=== PATIENT | male | born 1965 | race Caucasian/White ===

== ENCOUNTER → 2018-09-07 14:53 | Outpatient (CLI) | payer OTHER, SELFPAY ==
--- NOTE | 2018-09-07 | DI.RAD.S_ITS ---
PROCEDURE: XR FOOT LT MIN 3V INDICATIONS: PAIN IN LEFT FOOT TECHNIQUE: 3 views of the foot were acquired. COMPARISON: None. FINDINGS: Bones: No fractures or dislocations. No suspicious bony lesions. Mild first MTP degeneration. 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 Prominent plantar and posterior calcaneal spurring. Soft tissues: No tibiotalar joint effusion. Achilles tendon appears normal. IMPRESSION: Prominent plantar and posterior calcaneal spurring. Diffuse forefoot joint degeneration as above Dictated by: Omar Ashley M.D. on 09/07/2018 at 17:06 Approved by: Omar Ashley M.D. on 09/07/2018 at 17:10
== END ==
PROVIDERS: PCP Internal Medicine; Visit Provider Internal Medicine
DX: M79.672 Pain in left foot (principal); M10.9 Gout, unspecified; M77.32 Calcaneal spur, left foot; M19.072 Primary osteoarthritis, left ankle and foot
CPT/HCPCS: 73630

== ENCOUNTER 2020-05-08 17:51 | Observation (INO) | payer OTHER, SELFPAY ==
[2020-05-08] VITALS (11 sets, daily range): BP systolic 149–171; BP diastolic 93–102; PULSE 74–102; RESP 16–18; TEMP 36.4–36.7; O2SAT 94–98; BMI 36.3
--- NOTE | 2020-05-08 19:03 | ED.GENADULT ---
HPI - General Adult General Chief complaint: Diabetic Problem Stated complaint: HIGH BLOOD SUGAR Time Seen by Provider: 05/08/20 18:54 Source: patient and family Mode of arrival: Ambulatory History of Present Illness HPI narrative: Patient here with . Sent here from urgent care. Two weeks complaints of nausea polyuria polydipsia. Feeling tired and weak. Accu-Chek greater 500 at urgent care. Tested positive strep at Urgent Care. Denies chest pain abdominal pain. No prior history of diabetes diagnosis. No fever chills cough cold or congestion. Primary care is in [place]. Dr. Beckman. Unaware of patient's symptoms Related Data Home Medications Medication Instructions Recorded Confirmed amlodipine [Norvasc] 5 mg PO BEDTIME #0 03/01/17 05/08/20 esomeprazole magnesium [Nexium] 40 mg PO BEDTIME #0 03/01/17 05/08/20 levothyroxine [Synthroid] 100 mcg PO BEDTIME #0 03/01/17 05/08/20 triamterene-hydrochlorothiazid 1 tab PO BEDTIME #0 03/01/17 05/08/20 spironolactone 25 mg tablet 25 mg PO BEDTIME 07/10/18 05/08/20 Previous Rx's Medication Instructions Recorded amoxicillin 875 mg-potassium 1 tab PO BID #20 tab 07/10/18 clavulanate 125 mg tablet Allergies Allergy/AdvReac Type Severity Reaction Status Date / Time No Known Allergies Allergy Uncoded 05/08/20 18:11 Review of Systems Review of Systems Narrative: GENERAL: Denies chills, complains fatigue, malaise, denies fever, sweats. HEENT: Denies sinus pain, ear pain, sore throat, difficulty swallowing, dizziness. RESPIRATORY: Denies dyspnea, cough, wheezing, hemoptysis, sputum. CARDIOVASCULAR: Denies chest pain, palpitations, orthopnea, edema, GASTROINTESTINAL: Complains of nausea, denies vomiting, abdominal pain, diarrhea, constipation, melena. : Denies dysuria, complains of frequency, denies incontinence, hematuria, urinary retention. MUSCULOSKELETAL: denies weakness, joint pain, or bony pain SKIN: Denies rash, skin lesions NEUROLOGIC: Denies weakness, headache, numbness, change in speech, confusion, seizures, incoordination. PSYCHIATRIC: No concerning psychosocial issues. ROS Unobtainable: All systems reviewed & are unremarkable except as noted in HPI and below Patient History Medical History (Updated 05/08/20 @ 23:24 by LUIS ANGEL Fonseca) Adopted person (Acute) Basal cell carcinoma (Acute) Essential hypertension (Acute) Surgical History (Updated 05/08/20 @ 23:27 by LUIS ANGEL Fonseca) S/P dissection of cervical lymph nodes (Acute) Family History (Updated 05/09/20 @ 00:05 by LUIS ANGEL Fonseca) Other Family history unknown Social History household members: spouse Smoking Status: Never smoker alcohol intake: never Smoking Status: Never smoker Substance Use Type: does not use Exam Narrative Exam Narrative: GENERAL: patient appears stated age. Well-nourished, well-developed patient, in no distress, not toxic HEAD: Atraumatic. Normocephalic. EYES: Pupils equal round and reactive. Extraocular motions intact. No scleral icterus. No injection or drainage. ENT: Nose without bleeding, purulent drainage. Throat without erythema, tonsillar hypertrophy or exudate. Airway patent. Slightly dry mucous membranes NECK: Trachea midline. Non tender CARDIOVASCULAR: Regular rate and rhythm without murmurs, gallops, or rubs. RESPIRATORY: Clear to auscultation. Breath sounds equal bilaterally. No wheezes, rales, or rhonchi. GASTROINTESTINAL: Abdomen soft, non-tender, nondistended. EXTREMITIES: No edema or joint tenderness. BACK: Nontender without deformity or crepitance. No flank tenderness. NEURO: AOx4. SKIN: No rash or erythema of visible areas PSYCH: Not anxious, is cooperative Initial Vital Signs Initial Vital Signs: Vital Signs Temperature 98.1 F 05/08/20 18:05 Pulse Rate 102 H 05/08/20 18:05 Respiratory Rate 16 05/08/20 18:05 Blood Pressure 155/102 H 05/08/20 18:05 Pulse Oximetry 97 05/08/20 18:05 Course Orders Ordered: Acetaminophen (Tylenol) 650 mg PO Q6HR PRN PRN Reason: Fever/Mild Pain (1-3) Amlodipine Besylate (Norvasc) 2.5 mg PO DAILY [facility] Amoxicillin/Clavulanate Potassium (Augmentin 875-125 Mg) 1 tab PO BID SURJIT Last Admin: 05/09/20 03:00 Dose: 1 tab Documented by: AKILAH Dextrose (D50w) 25 gm IV PRN PRN PRN Reason: Hypoglycemia Dextrose (D50w) 25 gm IV PRN PRN PRN Reason: Hypoglycemia Enoxaparin Sodium (Lovenox) 40 mg SUBCUT DAILY SURJIT Sodium Chloride (Normal Saline 0.45%) 1,000 mls @ 100 mls/hr IV CONT SURJIT Last Admin: 05/09/20 02:55 Dose: 100 mls/hr Documented by: AKILAH Insulin Aspart (Novolog Flexpen) 0 unit SUBCUT ACHS SURJIT; Protocol Insulin Aspart (Novolog Flexpen) 0 unit SUBCUT ACHS SURJIT; Protocol Insulin Glargine (Lantus Solostar (Pen)) 5 unit SUBCUT 2100 [facility] Last Admin: 05/09/20 03:03 Dose: Not Given Documented by: AKILAH Levothyroxine Sodium (Synthroid) 100 mcg PO 0600 SURJIT Naloxone HCl (Narcan) 0.2 mg IV Q2MIN PRN PRN Reason: Opiate Reversal Ondansetron HCl (Zofran) 4 mg IV Q6HR PRN PRN Reason: Nausea And Vomiting Discontinued Medications Amlodipine Besylate (Norvasc) 2.5 mg PO NOW ONE Stop: 05/08/20 23:12 Last Admin: 05/09/20 03:16 Dose: Not Given Documented by: AKILAH Amlodipine Besylate (Norvasc) 2.5 mg PO NOW ONE Stop: 05/09/20 03:18 Last Admin: 05/09/20 03:46 Dose: 2.5 mg Documented by: AKILAH Sodium Chloride (Normal Saline 0.9%) 1,000 mls @ 1,000 mls/hr IV BOLUS ONE Stop: 05/08/20 20:05 Last Infusion: 05/08/20 21:25 Dose: 0 mls/hr Documented by: Admin: 05/08/20 19:59 Dose: 1,000 mls/hr Documented by: STACY Insulin Glargine (Lantus Solostar (Pen)) 5 unit SUBCUT BEDTIME SURJIT Last Admin: 05/09/20 03:01 Dose: 5 unit Documented by: AKILAH Cosigned by: BESSIE Insulin Human Regular (Humulin R) 10 unit SUBCUT NOW ONE Stop: 05/08/20 20:23 Last Admin: 05/08/20 20:31 Dose: 10 unit Documented by: NANY Cosigned by: STACY Reevaluation(s) Reevaluation #1: s/w feliciano macias, hospitalist, will see pt in er, give insulin Time: 20:23 Vital Signs Vital signs: Vital Signs - 8 hr 05/08/20 18:05 05/08/20 19:37 05/08/20 19:38 Temperature 98.1 F Pulse Rate 102 H 84 84 Respiratory Rate 16 Blood Pressure 155/102 H 157/100 H Pulse Oximetry 97 97 96 05/08/20 20:00 05/08/20 20:30 Temperature Pulse Rate 87 88 Respiratory Rate Blood Pressure 156/93 H Pulse Oximetry 94 98 Medical Decision Making Differential Diagnosis Differential Diagnosis: New onset diabetes/strep throat Lab Data Lab results reviewed: Yes I reviewed the patient's lab results. Result diagrams: 05/08/20 19:30 05/08/20 19:30 Labs: Lab Results 05/08/20 05/08/20 05/08/20 Range/Units 19:00 19:30 19:30 WBC 11.2 H (4.5-11.0) X10^3/uL RBC 6.20 H (4.5-5.9) X10^6/uL Hgb 17.6 H (13.5-17.5) g/dL Hct 51.1 (41-53) % MCV 82.5 (80-100) fL MCH 28.3 (26-34) PG MCHC 34.3 (30-36) % RDW 13.3 (11.6-14.8) % Plt Count 242 (150-400) X10^3/uL Neut % (Auto) 66.4 (50-75) % Lymph % (Auto) 22.4 L (25-40) % Cloud % (Auto) 9.0 (3-14) % Eos % (Auto) 1.4 L (2-4) % Baso % (Auto) 0.8 (0-2) % Neut # (Auto) 7400 H (2894-2368) /uL Lymph # (Auto) 2500 (9924-2245) /uL Cloud # (Auto) 1000 H (0-900) /uL Eos # (Auto) 200 (0-450) /uL Baso # (Auto) 100 (0-100) /uL Sodium 131 L (137-145) mmol/L Potassium 4.2 (3.4-5.1) mmol/L Chloride 88 L (98-107) mmol/L Carbon Dioxide 29 (22-32) mmol/L BUN 37 H (9-20) mg/dL Creatinine 1.70 H (0.66-1.25) mg/dL Estimated GFR 42.1 L (>60) mL/min BUN/Creatinine Ratio 21.8 (6-22) Glucose 533 H* (70-100) mg/dL Hemoglobin A1c (4.0-6.0) % Calcium 10.2 (8.4-10.2) mg/dL Total Bilirubin 1.0 (0.2-1.3) mg/dL AST 50 (17-59) IU/L ALT 65 H (<50) IU/L Alkaline Phosphatase 165 H (38-126) U/L Total Protein 9.0 H (6.3-8.2) g/dL Albumin 4.5 (3.5-5.0) g/dL Globulin 4.5 H (1.7-4.1) g/dL Albumin/Globulin Ratio 1.0 (1.0-2.8) Lipase 420 H (23-300) U/L Ketones 0.19 (<0.27) mmol/L COVID-19 PCR Negative (Negative) 05/08/20 Range/Units 19:30 WBC (4.5-11.0) X10^3/uL RBC (4.5-5.9) X10^6/uL Hgb (13.5-17.5) g/dL Hct (41-53) % MCV (80-100) fL MCH (26-34) PG MCHC (30-36) % RDW (11.6-14.8) % Plt Count (150-400) X10^3/uL Neut % (Auto) (50-75) % Lymph % (Auto) (25-40) % Cloud % (Auto) (3-14) % Eos % (Auto) (2-4) % Baso % (Auto) (0-2) % Neut # (Auto) (3483-6513) /uL Lymph # (Auto) (1227-6247) /uL Cloud # (Auto) (0-900) /uL Eos # (Auto) (0-450) /uL Baso # (Auto) (0-100) /uL Sodium (137-145) mmol/L Potassium (3.4-5.1) mmol/L Chloride (98-107) mmol/L Carbon Dioxide (22-32) mmol/L BUN (9-20) mg/dL Creatinine (0.66-1.25) mg/dL Estimated GFR (>60) mL/min BUN/Creatinine Ratio (6-22) Glucose (70-100) mg/dL Hemoglobin A1c 12.6 H (4.0-6.0) % Calcium (8.4-10.2) mg/dL Total Bilirubin (0.2-1.3) mg/dL AST (17-59) IU/L ALT (<50) IU/L Alkaline Phosphatase (38-126) U/L Total Protein (6.3-8.2) g/dL Albumin (3.5-5.0) g/dL Globulin (1.7-4.1) g/dL Albumin/Globulin Ratio (1.0-2.8) Lipase (23-300) U/L Ketones (<0.27) mmol/L COVID-19 PCR (Negative) Point of Care Testing Glucose POC 533 Point of care testing: Point of Care Testing Glucose POC 533 MDM Narrative Medical decision making narrative: Appropriate for admission. No comparison for renal function. New onset diabetes. IV fluids given. Insulin given requested by hospitalist. Discharge Plan Departure Patient Disposition: Admitted as Observation Clinical Impression: Diabetes mellitus Qualifiers: Diabetes mellitus type: other specified (including BORIS) Diabetes mellitus group home insulin use: unspecified termite exterminator helper insulin use status Diabetes mellitus complication status: with other specified complication Qualified Code(s): E13.69 - Other specified diabetes mellitus with other specified complication Discharge Date/Time: 05/08/20 21:56 Admit Date/Time: 05/08/20 20:44 Admit Provider: Ni Macias
[2020-05-08 19:21] LABS: COVID19 -Nasal RAPID Negative (Negative)
[2020-05-08 19:36] LABS: Add Manual Diff / Slide Review NO; Basophils Absolute Auto 100 /uL (0-100); Basophils Percent Auto 0.8 % (0-2); Eosinophils Absolute Auto 200 /uL (0-450); Eosinophils Percent Auto 1.4 % (2-4); Hematocrit 51.1 % (41-53); Hemoglobin 17.6 g/dL (13.5-17.5); Lymphocytes Absolute Auto 2500 /uL (1100-4500); Lymphocytes Percent Auto 22.4 % (25-40); Mean Corpuscular HGB Conc 34.3 % (30-36); Mean Corpuscular Hemoglobin 28.3 PG (26-34); Mean Corpuscular Volume 82.5 fL (80-100); Monocytes Absolute Auto 1000 /uL (0-900); Neutrophils Absolute Auto 7400 /uL (1500-7000); Neutrophils Percent Auto 66.4 % (50-75); Platelet Count 242 X10^3/uL (150-400); Red Cell Distribution Width 13.3 % (11.6-14.8); White Blood Cell Count 11.2 X10^3/uL (4.5-11.0)
[2020-05-08 19:52] LABS: Alanine Aminotransferase 65 IU/L (<50); Albumin 4.5 g/dL (3.5-5.0); Alkaline Phosphatase 165 U/L (38-126); Aspartate Aminotransferase 50 IU/L (17-59); BUN Creatinine Ratio 21.8 (6-22); Blood Urea Nitrogen 37 mg/dL (9-20); Calcium 10.2 mg/dL (8.4-10.2); Carbon Dioxide 29 mmol/L (22-32); Chloride 88 mmol/L (98-107); Estimated Glomerular Filt Rate 42.1 mL/min (>60); Globulin 4.5 g/dL (1.7-4.1); Lipase 420 U/L (23-300); Potassium 4.2 mmol/L (3.4-5.1); Sodium 131 mmol/L (137-145)
[2020-05-08 19:54] LABS: HEMOLYSIS 62 (0-50)
[2020-05-08 19:55] LABS: Glucose 533 mg/dL (70-100); Ketones (Beta-Hydroxybutyrate) 0.19 mmol/L (<0.27)
[2020-05-08] MEDS: SODIUM CHLORIDE 0.9% 1,000 ML 1000 ML IV (19:59)
[2020-05-08] MEDS: INSULIN REGULAR 100 UNIT/ML 3 ML VIAL 10 UNIT SUBCUT (20:31)
[2020-05-08 20:42] LABS: Hemoglobin A1C% w Est Avg Glu 12.6 % (4.0-6.0)
--- NOTE | 2020-05-08 23:13 | P.HP_ITS ---
History of Present Illness History of Present Illness Date Patient Seen: 05/08/20 Time Patient Seen: 21:30 Chief complaint: HIGH BLOOD SUGAR Narrative: Alondra Mohan is a 54 y.o. male who was sent over from [facility] in [place] after being assessed for an upper respiratory infection and diagnosed with strep throat. He states he has been nauseous for 2 weeks, has had a dry mouth and is thirsty and urinating all the time. He felt initially that this was timed coincided with some changes in his blood pressure medications which included amlodipine and triamterine. He was taking both together due to the swelling caused by the amlodipine. He states he had similar symptoms in February, had his blood pressure medications adjusted and stated at that time his eyesight improved. He is adopted and does not know his family history. He states he has had nasal congestion for a number of days, visual changes as mentioned above, cough and sore throat, denies chest pain, shortness of breath, abdominal pain, he has had polyuria for 2 weeks, denies musculoskeletal pain however he does have bilateral neuropathy of both feet after having under gone chemotherapy in the remote past. The patient has had basal cell carcinoma with lesions removed 2 years ago which included dissection of lymph nodes in his right neck and corresponding chemotherapy. He states history of hypertension that eventually becomes resistant to medications he has been on the past which is also included lisinopril. He states he recently had a lipid panel drawn and no mention was made at that time of his blood sugars. In the emergency department they gave him 10 units of regular insulin at my request, his admitting temperature 97.5, blood pressure 171/97, heart rate 74, r espiratory rate 18, oxygen saturation 98% on room air, he weighs 124.7 kg with a BMI of 36. WBC is 11.2, RBC 6.2, hemoglobin 17.6, hematocrit 51.1, platelet count 242, sodium 131, potassium 4.2, chloride 88, bicarb 29, BUN 37, creatinine 1.7, with a GFR of 42.1, glucose 533 and hemoglobin A1c of 12.6, calcium 10 point 2, total bilirubin 1.0, AST 50, ALT 65, alk-phos 165, total protein 9.0, ketones are normal at 0.19, COVID-19 is negative. Patient History Medical History (Updated 05/08/20 @ 23:24 by LUIS ANGEL Fonseca) Adopted person (Acute) Basal cell carcinoma (Acute) Essential hypertension (Acute) Surgical History (Updated 05/08/20 @ 23:27 by LUIS ANGEL Fonseca) S/P dissection of cervical lymph nodes (Acute) Family & Social History Family History (Updated 05/09/20 @ 00:05 by LUIS ANGEL Fonseca) Other Family history unknown Social History: household members spouse Prior Living Arrangements House Safety & Behavioral: Feels Safe in Current Yes Environment Been Physically Hurt or No Threatened By a Person Suicidal Ideation Description None Suicide Plan Description No Plan Tobacco & Substance use: Smoking Status Never smoker alcohol intake never Substance Use Type does not use Meds Home Medications and Allergies Home Medications Medication Instructions Recorded Confirmed Type amlodipine [Norvasc] 5 mg PO BEDTIME #0 03/01/17 05/08/20 History esomeprazole magnesium [Nexium] 40 mg PO BEDTIME #0 03/01/17 05/08/20 History levothyroxine [Synthroid] 100 mcg PO BEDTIME #0 03/01/17 05/08/20 History triamterene-hydrochlorothiazid 1 tab PO BEDTIME #0 03/01/17 05/08/20 History amoxicillin 875 mg-potassium 1 tab PO BID #20 tab 07/10/18 Rx clavulanate 125 mg tablet spironolactone 25 mg tablet 25 mg PO BEDTIME 07/10/18 05/08/20 History Allergies Allergy/AdvReac Type Severity Reaction Status Date / Time No Known Allergies Allergy Uncoded 05/08/20 18:11 Review of Systems Review of Systems ROS: Yes All systems reviewed with the patient and are negative except as otherwise documented Exam Vital Signs (past 8 hours): - 05/08/20 18:05 05/08/20 19:37 05/08/20 19:38 Temperature 98.1 F Pulse Rate 102 H 84 84 Respiratory Rate 16 Blood Pressure 155/102 H 157/100 H Pulse Oximetry 97 97 96 05/08/20 20:00 05/08/20 20:30 05/08/20 21:00 Temperature Pulse Rate 87 88 81 Respiratory Rate Blood Pressure 156/93 H Pulse Oximetry 94 98 97 05/08/20 21:03 05/08/20 21:30 05/08/20 21:31 Temperature Pulse Rate 81 74 74 Respiratory Rate Blood Pressure 154/95 H 149/100 H Pulse Oximetry 97 97 97 05/08/20 21:56 Temperature 97.5 F L Pulse Rate 74 Respiratory Rate 18 Blood Pressure 171/97 H Pulse Oximetry 98 Oxygen Delivery Method Room Air Narrative Exam Narrative: Gen: Alert, oriented, overweight 54 y.o. male, HEENT: normocephalic, atraumatic, conjunctiva clear, sclera non-icteric, oral mucosa pink and moist Neck: supple, full ROM, no JVD, trachea is midline Resp: Lungs CTA, non-labored breathing CV: RRR, no murmur or rubs Abd: soft, non-tender, normoactive BTs Skin: esteban complected, no lesions or rashes, dry and intact Neuro: Alert and oriented X 4 w/no focal deficits. Speech clear and coherent. Extremities: moves all 4 extremities, is ambulatory, negative Anita?s sign Psyche: normal mood and affect. Objective Labs Result Diagrams: 05/08/20 19:30 05/08/20 19:30 Labs: Laboratory Results - last 24 hr 05/08/20 05/08/20 05/08/20 19:00 19:30 19:30 WBC 11.2 H RBC 6.20 H Hgb 17.6 H Hct 51.1 MCV 82.5 MCH 28.3 MCHC 34.3 RDW 13.3 Plt Count 242 Neut % (Auto) 66.4 Lymph % (Auto) 22.4 L Gillespie % (Auto) 9.0 Eos % (Auto) 1.4 L Baso % (Auto) 0.8 Neut # (Auto) 7400 H Lymph # (Auto) 2500 Gillespie # (Auto) 1000 H Eos # (Auto) 200 Baso # (Auto) 100 Sodium 131 L Potassium 4.2 Chloride 88 L Carbon Dioxide 29 BUN 37 H Creatinine 1.70 H Estimated GFR 42.1 L BUN/Creatinine Ratio 21.8 Glucose 533 H* Hemoglobin A1c Calcium 10.2 Total Bilirubin 1.0 AST 50 ALT 65 H Alkaline Phosphatase 165 H Total Protein 9.0 H Albumin 4.5 Globulin 4.5 H Albumin/Globulin Ratio 1.0 Lipase 420 H Ketones 0.19 COVID-19 PCR Negative 05/08/20 19:30 WBC RBC Hgb Hct MCV MCH MCHC RDW Plt Count Neut % (Auto) Lymph % (Auto) Gillespie % (Auto) Eos % (Auto) Baso % (Auto) Neut # (Auto) Lymph # (Auto) Gillespie # (Auto) Eos # (Auto) Baso # (Auto) Sodium Potassium Chloride Carbon Dioxide BUN Creatinine Estimated GFR BUN/Creatinine Ratio Glucose Hemoglobin A1c 12.6 H Calcium Total Bilirubin AST ALT Alkaline Phosphatase Total Protein Albumin Globulin Albumin/Globulin Ratio Lipase Ketones COVID-19 PCR Assessment & Plan Assessment & Plan narrative: Alondra Mohan will be observed overnight to stabilize his blood sugars. New onset Diabetes type 2 with an A1c of 12.7, present on admission -He is initiated on basal insulin glargine 5 units with medium dose correctional scale -Glucose achs -Diabetic teaching Essential hypertension, poorly controlled and present on admission -Patient reportedly was on lisinopril but discontinued due to developing resistance -Consider initiation of an ARB/ARNI on discharge when renal function has s tabilized -Holding diuretics Risk stratification -Lipid panel in the am Hypothyroidism, chronic -Continue home dose of levothyroxine 100 mcg daily Strep throat infection -Confirmed by [facility] -Continue augmentin 875 mg po bid VTE prophylaxis: Wells risk score: 2.5, intermediate Enoxaparin 40 mg subQ daily Consults: none Patient is observation status as his stay is not likely to exceed 2 midnights. FEN: NS at 100 ml/hour, carb control diet, BMP and magnesium in the am. Dispo: discharge to home w/close PCP follow-up, clinic is open Monday. Code Status: Full code as discussed with patient COVID-19 COVID-19 status: Negative Result date/Date tested (Pos, Neg/Pending): 05/08/20 Scores Wells' Criteria for PE Clinical signs and symptoms of DVT: No PE is #1 Dx or equally likely: No Heart rate > 100: No Immobilization at least 3 days or surg in previous 4 weeks: No History of PE or DVT: No Hemoptysis: No Malignancy w/Treatment within 6 months or palliative: No Wells' PE Score total: 0 Quality VTE Deep Vein Thrombosis/Pulmonary Embolism Present on Admission: No
[2020-05-09] VITALS (9 sets, daily range): BP systolic 131–143; BP diastolic 58–90; PULSE 64–70; RESP 16–19; TEMP 36.4–36.6; O2SAT 95–98
[2020-05-09] MEDS: SODIUM CHLORIDE 0.45% 1,000 ML 100 ML IV (02:55)
[2020-05-09] MEDS: AMOXICILLIN/CLAV 875/125 MG 1 TAB PO ×3 (03:00→20:36)
[2020-05-09] MEDS: INSULIN GLARGINE 100 UNIT/ML 3ML PEN SUBCUT (03:01)
[2020-05-09] MEDS: AMLODIPINE 2.5 MG TABLET PO ×2 (03:46→08:26)
--- NOTE | 2020-05-09 04:32 | PC.NURSE ---
Pt resting comfortably w/no c/o of throat pain, although he does show erythema of his throat. Early in shift, Lantus, Amoxicillin and amlodipine were missed on OCT and given late. Please see MAR. Pt rested comfortably most of shift.
[2020-05-09] MEDS: LEVOTHYROXINE 75 MCG TABLET 100 MCG PO (05:41)
[2020-05-09 06:29] LABS: Add Manual Diff / Slide Review NO; Basophils Absolute Auto 100 /uL (0-100); Basophils Percent Auto 1.3 % (0-2); Eosinophils Absolute Auto 200 /uL (0-450); Eosinophils Percent Auto 2.6 % (2-4); Hematocrit 45.4 % (41-53); Hemoglobin 15.7 g/dL (13.5-17.5); Lymphocytes Absolute Auto 2600 /uL (1100-4500); Lymphocytes Percent Auto 27.3 % (25-40); Mean Corpuscular HGB Conc 34.6 % (30-36); Mean Corpuscular Hemoglobin 28.5 PG (26-34); Mean Corpuscular Volume 82.3 fL (80-100); Monocytes Absolute Auto 900 /uL (0-900); Monocytes Percent Auto 9.2 % (3-14); Neutrophils Absolute Auto 5700 /uL (1500-7000); Neutrophils Percent Auto 59.6 % (50-75); Platelet Count 209 X10^3/uL (150-400); Red Blood Cell Count 5.51 X10^6/uL (4.5-5.9); Red Cell Distribution Width 13.2 % (11.6-14.8); White Blood Cell Count 9.6 X10^3/uL (4.5-11.0)
[2020-05-09 06:44] LABS: Alanine Aminotransferase 49 IU/L (<50); Albumin 3.7 g/dL (3.5-5.0); Albumin Globulin Ratio 1.1 (1.0-2.8); Alkaline Phosphatase 119 U/L (38-126); Aspartate Aminotransferase 41 IU/L (17-59); BUN Creatinine Ratio 21.9 (6-22); Bilirubin Total 0.6 mg/dL (0.2-1.3); Blood Urea Nitrogen 33 mg/dL (9-20); Calcium 9.3 mg/dL (8.4-10.2); Carbon Dioxide 31 mmol/L (22-32); Chloride 93 mmol/L (98-107); Cholesterol 132 mg/dL (140-199); Estimated Glomerular Filt Rate 48.2 mL/min (>60); Globulin 3.5 g/dL (1.7-4.1); Glucose 372 mg/dL (70-100); HDL Cholesterol 22 mg/dL (40-60); HEMOLYSIS < 15 (0-50); Magnesium 2.2 mg/dL (1.6-2.3); Potassium 3.1 mmol/L (3.4-5.1); Sodium 132 mmol/L (137-145); Total Protein 7.2 g/dL (6.3-8.2); Triglycerides 499 mg/dL (35-150)
[2020-05-09 07:14] LABS: Thyroid Stimulating Hormone 2.68 uIU/mL (0.47-4.68)
[2020-05-09] MEDS: SODIUM CHLORIDE 0.9% 1,000 ML 100 ML IV ×2 (08:15→19:24)
[2020-05-09] MEDS: INSULIN ASPART 100 UNIT/ML INSULN PEN SUBCUT ×4 (08:19→20:37)
[2020-05-09] MEDS: INSULIN GLARGINE 100 UNIT/ML 3ML PEN 10 UNIT SUBCUT (08:20)
[2020-05-09] MEDS: ENOXAPARIN 40 MG/0.4 ML SYRINGE SUBCUT (08:21)
[2020-05-09] MEDS: POTASSIUM CHLORIDE 20 MEQ TAB 40 MEQ PO ×2 (08:25→19:23)
[2020-05-09 12:07] LABS: Bacteria Urine None Seen; RBC Urine None Seen (0-5/HPF); WBC Urine None Seen (0-5/HPF)
[2020-05-09 12:15] LABS: Culture Indicated Urine Cult Not Indicated; Urine Comments Microscopic Normal
--- NOTE | 2020-05-09 14:17 | CM.DANOTE ---
Discharge Planning/Care Management DCP: assessment: case received and met with pt and his Kiera during Team Bedside Rounds. Introduced self and role. Pt is a 54 year old male who admitted to care of hospitalist team last night after being sent over from the [facility]. PCP: Arthur Beckman Pt confirms he lives in [place] and his mailing address is at a [employer] company on [address]. Pt with new diagnosis of URI/strep throat and put on antibiotics by the Urgent Care team then referred to for high blood sugar. Dr. Beauchamp explained to all that pt now has a new diagnosis of diabetes. She is putting him on insulin as well as oral antibiotics, ordering research environmental engineer consult and expecting that he will need to remain in the hospital until at least tomorrow. P: follow as POC unfolds to assist with any d/c issues/options that may arise. CM Discharge Assessment Start: 05/09/20 14:15 Freq: Status: Active Protocol: Document 05/09/20 14:17 ITV (Rec: 05/09/20 14:17 ITV [id number]) Discharge Planning Assessment Advance Directives? No History Provided By Patient,Family Member,Medical Record Prior Living Arrangements House Household Members spouse Independent with ADL's Yes Is patient alert and oriented? Yes Whiteboard Updated in Patient Room with Yes name and ext. # of Sheep Rancher
--- NOTE | 2020-05-09 15:28 | PC.NURSE ---
Day SHift- Pt A&OX4, indep in room with steady gait. Denies chest pain, pressure, nausea, shortness of breath, light-headedness or dizziness. States voiding without issue. Tolerating diet. Insulin and blood glucose level checks explained to pt. Awaiting Agricultural Equipment Test Engineer consult. Likely be tomorrow Monday. IVF infusing well to PIV, changed this AM per Dr's order. Pt's Kiera at bedside visiting. Evening RN aware pt would like his Nexium reordered from home with Dr. Beauchamp rounds on pt. No other voiced concerns. Pt states feeling much better than yesterday.
[2020-05-09 15:48] LABS: Lipase 314 U/L (23-300)
--- NOTE | 2020-05-09 16:41 | PM.PN.1 ---
Subjective Subjective Date Patient Seen: 05/09/20 Interval history: Alondra Mohan is a 54-year-old male with a past medical history signifcant for hypertension who presented to ED at direction of urgent care for hyperglycemia, polyuria, polydipsia, and nausea x 2 weeks. The patient is resting in bed comfortably. Heno longer feels nauseated. He endorses polyuria and polydipsia for several weeks. Discussed in detail diabetes including the diagnosis, associated complications, and management with medications, insulin, and lifestyle changes including diet and exercise. He denies headache, vision changes, cough, shortness of breath, chest pain, abdominal pain, nausea, vomiting, fever, chills, dysuria, diarrhea, constipation, or parestheisias. He is voiding and eliminating without difficulty. He is up ambulating without assistance. Exam Vital Signs (past 8 hours): - 05/09/20 15:00 05/09/20 15:56 Temperature 97.8 F Pulse Rate 70 Respiratory Rate 17 Blood Pressure 143/79 H Pulse Oximetry 98 98 Oxygen Delivery Method Room Air Oxygen Flow Rate 0 Narrative Exam Narrative: General: Middle aged male in no acute distress, well-developed, well-nourished, appropriately interactive HEENT: Normocephalic, atraumatic. External ears without defect. Pupils equal, round, and reactive to light and accommodation. Anicteric sclerae, moist conjunctivae, and no lid lag. Oropharynx with erythema and patchy exudate. Neck: Supple with full range of motion. No lymphadenopathy or thyromegaly. Cardiovascular: Regular rate and rhythm without murmurs, rubs, or gallops appreciated Pulmonary: Clear to auscultation bilaterally without crackles, wheezes, or rhonchi. Normal respiratory effort with no use of accessory muscles. Abdomen: Soft, bowel sounds present, nontender, nondistended. No hepatosplenomegaly or masses appreciated. Extremities: No clubbing, cyanosis, or edema. Skin: Normal temperature, turgor, and texture; no rash, ulcers, or subcutaneous nodules appreciated. Neurological: Cranial nerves grossly intact. Psychiatric: Normal mood and affect. Alert and oriented to person, place, and time. Objective Labs Result Diagrams: 05/10/20 05:30 05/10/20 05:30 Labs: Laboratory Results - last 24 hr 05/08/20 05/09/2020 19:30 05:51 05:51 WBC 9.6 RBC 5.51 Hgb 15.7 Hct 45.4 MCV 82.3 MCH 28.5 MCHC 34.6 RDW 13.2 Plt Count 209 Neut % (Auto) 59.6 Lymph % (Auto) 27.3 [place] % (Auto) 9.2 Eos % (Auto) 2.6 Baso % (Auto) 1.3 Neut # (Auto) 5700 Lymph # (Auto) 2600 [place] # (Auto) 900 Eos # (Auto) 200 Baso # (Auto) 100 Sodium 132 L Potassium 3.1 L Chloride 93 L Carbon Dioxide 31 BUN 33 H Creatinine 1.51 H Estimated GFR 48.2 L BUN/Creatinine Ratio 21.9 Glucose 372 H D Hemoglobin A1c 12.6 H Calcium 9.3 Magnesium 2.2 Total Bilirubin 0.6 AST 41 ALT 49 Alkaline Phosphatase 119 Total Protein 7.2 Albumin 3.7 Globulin 3.5 Albumin/Globulin Ratio 1.1 Triglycerides 499 H Cholesterol 132 L LDL Cholesterol, Calc TNP HDL Cholesterol 22 L Lipase TSH Urine RBC Urine WBC Urine Bacteria Ur Culture Indicated? Micro UA Comment 05/09/20 05/09/20 05/09/20 05:51 05:51 12:00 WBC RBC Hgb Hct MCV MCH MCHC RDW Plt Count Neut % (Auto) Lymph % (Auto) [place] % (Auto) Eos % (Auto) Baso % (Auto) Neut # (Auto) Lymph # (Auto) [place] # (Auto) Eos # (Auto) Baso # (Auto) Sodium Potassium Chloride Carbon Dioxide BUN Creatinine Estimated GFR BUN/Creatinine Ratio Glucose Hemoglobin A1c Calcium Magnesium Total Bilirubin AST ALT Alkaline Phosphatase Total Protein Albumin Globulin Albumin/Globulin Ratio Triglycerides Cholesterol LDL Cholesterol, Calc HDL Cholesterol Lipase 314 H TSH 2.68 Urine RBC None seen Urine WBC None seen Urine Bacteria None seen Ur Culture Indicated? Cult not indicated Micro UA Comment Microscopic normal Assessment & Plan Assessment & Plan narrative: Alondra Mohan is a 54-year-old male with a past medical history signifcant for hypertension who presented to ED at direction of urgent care for hyperglycemia, polyuria, polydipsia, and nausea x 2 weeks. 1. Newly diagnosed diabetes mellitus type 2, present on admission. Active. with an A1c of 12.7, present on admission -Hemoglobin A1C 12.7%. -Received regular insulin 10 units SQ in ED. Started and continue lantus and titrate up now 15 units twice daily. -Continue [facility] blood glucose checks and medium dose correctional scale insulin. -Spent significant time providing diabetic education including:diagnosis, associated complications, and management with medications, insulin, and lifestyle changes including diet and exercise. Recommend outpatient DSME. 2. Probable WILBERT versus CKD, present on admission. Active. -Initial creatinine 1.7. No baseline for comparison. Creatinine now 1.51 and likely represents WILBERT due to newly diagnosed DM and dehydration from hyperglycemia in combination with diuretic. -Avoid nephrotoxic agents. Held spironolactone. Previously on ACEI/ARB and should likely be restarted once renal function stable. -Continue to monitor creatinine daily. 3. Hypertension, chronic, present on admission. Stable. -Continued home amlodipine 2.5 mg daily. -Patient reportedly was on lisinopril but discontinued due to developing resistance. Held spironolactone due to WILBERT and hyperglycemia with dehydration. Previously on ACEI/ARB and should likely be restarted once renal function stable. 4. Hyperlipidemia, newly diagnosed and chronic, present on admission. Stable. -Fasting lipid panel demonstrated poor lipid control including: Total cholesterol 132, Triglycerides 499, LDL TNP and HDL 22. -Started and continue atorvastatin 40 mg daily at bedtime and implementation of lifestyle modification including control diabetes as above, diet and exercise. 5. Hypothyroidism, chronic, present on admission. Stable. -Continue home levothyroxine 100 mcg daily. 6. Strep throat infection, present on admission. Resolving. -Patient diagnosed at [facility] walk in clinic. -Continue course of augmentin 875 mg twice daily for 7 days. Code Status: Full code VTE prophylaxis: Enoxaparin, SCDs Disposition:Patient likely to discharge in 1-2 days once blood glucose controlled and adequately educated regarding new diagnosis of diabetes. Quality VTE Deep Vein Thrombosis/Pulmonary Embolism Present on Admission: No
[2020-05-09] MEDS: INSULIN GLARGINE 100 UNIT/ML 3ML PEN 15 UNIT SUBCUT (20:39)
[2020-05-09] MEDS: PANTOPRAZOLE 40 MG TABLET PO (20:43)
[2020-05-10 00:11] VITALS: BP 127/72; PULSE 72; RESP 18; TEMP 36.8; O2SAT 97
[2020-05-10 04:00] VITALS: BP 123/75; PULSE 63; RESP 16; TEMP 37.2; O2SAT 96
[2020-05-10] MEDS: SODIUM CHLORIDE 0.9% 1,000 ML 100 ML IV (04:31)
[2020-05-10] MEDS: LEVOTHYROXINE 100 MCG TABLET PO (05:27)
[2020-05-10 06:02] LABS: Alanine Aminotransferase 45 IU/L (<50); Albumin 3.3 g/dL (3.5-5.0); Albumin Globulin Ratio 0.9 (1.0-2.8); Alkaline Phosphatase 93 U/L (38-126); Aspartate Aminotransferase 45 IU/L (17-59); BUN Creatinine Ratio 19.8 (6-22); Bilirubin Total 0.7 mg/dL (0.2-1.3); Blood Urea Nitrogen 23 mg/dL (9-20); Calcium 8.5 mg/dL (8.4-10.2); Carbon Dioxide 27 mmol/L (22-32); Chloride 102 mmol/L (98-107); Estimated Glomerular Filt Rate > 60.0 mL/min (>60); Globulin 3.5 g/dL (1.7-4.1); Glucose 231 mg/dL (70-100); HEMOLYSIS 39 (0-50); Lipase 276 U/L (23-300); Potassium 3.6 mmol/L (3.4-5.1); Sodium 136 mmol/L (137-145); Total Protein 6.8 g/dL (6.3-8.2)
[2020-05-10 06:06] LABS: Add Manual Diff / Slide Review NO; Basophils Absolute Auto 100 /uL (0-100); Basophils Percent Auto 1.3 % (0-2); Eosinophils Absolute Auto 200 /uL (0-450); Eosinophils Percent Auto 2.8 % (2-4); Hemoglobin 15.6 g/dL (13.5-17.5); Lymphocytes Absolute Auto 2300 /uL (1100-4500); Lymphocytes Percent Auto 27.9 % (25-40); Mean Corpuscular Hemoglobin 28.3 PG (26-34); Mean Corpuscular Volume 83.3 fL (80-100); Monocytes Absolute Auto 700 /uL (0-900); Neutrophils Absolute Auto 4800 /uL (1500-7000); Platelet Count 167 X10^3/uL (150-400); Red Blood Cell Count 5.52 X10^6/uL (4.5-5.9); Red Cell Distribution Width 13.4 % (11.6-14.8); White Blood Cell Count 8.2 X10^3/uL (4.5-11.0)
[2020-05-10 07:30] VITALS: BP 128/71; PULSE 60; RESP 19; TEMP 36.7; O2SAT 96
[2020-05-10] MEDS: POTASSIUM CHLORIDE 20 MEQ TAB 40 MEQ PO (08:30)
[2020-05-10] MEDS: ENOXAPARIN 40 MG/0.4 ML SYRINGE SUBCUT (08:30)
[2020-05-10] MEDS: AMLODIPINE 2.5 MG TABLET PO (08:31)
[2020-05-10] MEDS: AMOXICILLIN/CLAV 875/125 MG 1 TAB PO (08:31)
[2020-05-10] MEDS: INSULIN ASPART 100 UNIT/ML INSULN PEN SUBCUT (08:32)
[2020-05-10] MEDS: INSULIN GLARGINE 100 UNIT/ML 3ML PEN 15 UNIT SUBCUT (08:32)
--- NOTE | 2020-05-10 09:40 | PM.DS.1 ---
History of Present Illness History of Present Illness Date Patient Seen: 05/10/20 Time Patient Seen: 09:40 Chief complaint: HIGH BLOOD SUGAR Narrative: As per LUIS ANGEL Fonseca: Alondra Mohan is a 54 y.o. male who was sent over from [facility] in [place] after being assessed for an upper respiratory infection and diagnosed with strep throat. He states he has been nauseous for 2 weeks, has had a dry mouth and is thirsty and urinating all the time. He felt initially that this was timed coincided with some changes in his blood pressure medications which included amlodipine and triamterine. He was taking both together due to the swelling caused by the amlodipine. He states he had similar symptoms in February, had his blood pressure medications adjusted and stated at that time his eyesight improved. He is adopted and does not know his family history. He states he has had nasal congestion for a number of days, visual changes as mentioned above, cough and sore throat, denies chest pain, shortness of breath, abdominal pain, he has had polyuria for 2 weeks, denies musculoskeletal pain however he does have bilateral neuropathy of both feet after having under gone chemotherapy in the remote past. The patient has had basal cell carcinoma with lesions removed 2 years ago which included dissection of lymph nodes in his right neck and corresponding chemotherapy. He states history of hypertension that eventually becomes resistant to medications he has been on the past which is also included lisinopril. He states he recently had a lipid panel drawn and no mention was made at that time of his blood sugars. In the emergency department they gave him 10 units of regular insulin at my request, his admitting temperature 97.5, blood pressure 171/97, heart rate 74, respiratory rate 18, oxygen saturation 98% on room air, he weighs 124.7 kg with a BMI of 36. WBC is 11.2, RBC 6.2, hemoglobin 17.6, hematocrit 51.1, platelet count 242, sodium 131, potassium 4.2, chloride 88, bicarb 29, BUN 37, creatinine 1.7, with a GFR of 42.1, glucose 533 and hemoglobin A1c of 12.6, calcium 10 point 2, total bilirubin 1.0, AST 50, ALT 65, alk-phos 165, total protein 9.0, ketones are normal at 0.19, COVID-19 is negative. Discharge Providers Provider Date of admission: 05/08/20 20:44 Discharge Date: 05/10/20 Primary care physician: Arthur Beckman MD Consults: 05/09/20 07:51 Consult to Dietitian, Adult Stat Comment: Reason For Exam: New onset DM Discharge provider: Douglas Garcia DO Summary Hospital Course Discharge Diagnosis: Please see hospital course by problem list noted below. Hospital Course: Alondra Mohan is a 54-year-old male with a past medical history signifcant for hypertension who presented to ED at direction of urgent care for hyperglycemia, polyuria, polydipsia, and nausea x 2 weeks. She was admitted for dehydration due to severe hyperglycemia and new diagnosis of type 2 diabetes. She symptomatically improved with increased insulin and was discharged home with plans to follow up with her PMD. 1. Newly diagnosed diabetes mellitus type 2, present on admission. Active. with an A1c of 12.7, present on admission -Hemoglobin A1C 12.7% on admission. -Received regular insulin 10 units SQ in ED. Started on Lantus which was titrated up to 15 Units BID. She was improved into the 200s upon discharged. Additionally added metformin 750 mg given improvement in creatinine on day of discharge. -Spent significant time providing diabetic education including:diagnosis, associated complications, and management with medications, insulin, and lifestyle changes including diet and exercise. Recommend outpatient DSME. 2. WILBERT, present on admission. Active. -Initial creatinine 1.7. No baseline for comparison. Improved to 1.16 on day of discharge represents WILBERT due to newly diagnosed DM and dehydration from hyperglycemia in combination with diuretic. -Held aldactone upon discharge given controlled blood pressures and presentation with dehydration. 3. Hypertension, chronic, present on admission. Stable. -Continued home amlodipine 2.5 mg daily. -Patient reportedly was on lisinopril but discontinued due to developing resistance. Held spironolactone due to WILBERT and hyperglycemia with dehydration. Previously on ACEI/ARB and should likely be restarted as an outpatient. 4. Hyperlipidemia, newly diagnosed and chronic, present on admission. Stable. -Fasting lipid panel demonstrated poor lipid control including: Total cholesterol 132, Triglycerides 499, LDL TNP and HDL 22. -Started and continue atorvastatin 40 mg daily at bedtime and implementation of lifestyle modification including control diabetes as above, diet and exercise. 5. Hypothyroidism, chronic, present on admission. Stable. -Continue home levothyroxine 100 mcg daily. 6. Strep throat infection, present on admission. Resolving. -Patient diagnosed at [facility] walk in clinic. -Continue course of augmentin 875 mg twice daily for 7 days. Dispo: discharged home. Exam Vital Signs (past 8 hours): - 05/10/20 04:00 05/10/20 07:30 Temperature 98.9 F 98.0 F Pulse Rate 63 60 Respiratory Rate 16 19 Blood Pressure 123/75 128/71 Pulse Oximetry 96 96 Oxygen Delivery Method Room Air Oxygen Flow Rate 0 Narrative Exam Narrative: General: Middle aged male in no acute distress, well-developed, well-nourished, appropriately interactive HEENT: Normocephalic, atraumatic. External ears without defect. Pupils equal, round, and reactive to light and accommodation. Anicteric sclerae, moist conjunctivae, and no lid lag. Oropharynx with erythema and patchy exudate. Neck: Supple with full range of motion. No lymphadenopathy or thyromegaly. Cardiovascular: Regular rate and rhythm without murmurs, rubs, or gallops appreciated Pulmonary: Clear to auscultation bilaterally without crackles, wheezes, or rhonchi. Normal respiratory effort with no use of accessory muscles. Abdomen: Soft, bowel sounds present, nontender, nondistended. No hepatosplenomegaly or masses appreciated. Extremities: No clubbing, cyanosis, or edema. Skin: Normal temperature, turgor, and texture; no rash, ulcers, or subcutaneous nodules appreciated. Neurological: Cranial nerves grossly intact. Psychiatric: Normal mood and affect. Alert and oriented to person, place, and time. Objective Labs Result Diagrams: 05/10/20 05:30 05/10/20 05:30 Labs: Laboratory Results - last 24 hr 05/09/20 05/09/20 05/10/20 05:51 12:00 05:30 WBC 8.2 RBC 5.52 Hgb 15.6 Hct 46.0 MCV 83.3 MCH 28.3 MCHC 34.0 RDW 13.4 Plt Count 167 Neut % (Auto) 59.0 Lymph % (Auto) 27.9 [place] % (Auto) 9.0 Eos % (Auto) 2.8 Baso % (Auto) 1.3 Neut # (Auto) 4800 Lymph # (Auto) 2300 [place] # (Auto) 700 Eos # (Auto) 200 Baso # (Auto) 100 Sodium Potassium Chloride Carbon Dioxide BUN Creatinine Estimated GFR BUN/Creatinine Ratio Glucose Calcium Magnesium Total Bilirubin AST ALT Alkaline Phosphatase Total Protein Albumin Globulin Albumin/Globulin Ratio Lipase 314 H Urine RBC None seen Urine WBC None seen Urine Bacteria None seen Ur Culture Indicated? Cult not indicated Micro UA Comment Microscopic normal 05/10/20 05:30 WBC RBC Hgb Hct MCV MCH MCHC RDW Plt Count Neut % (Auto) Lymph % (Auto) [place] % (Auto) Eos % (Auto) Baso % (Auto) Neut # (Auto) Lymph # (Auto) [place] # (Auto) Eos # (Auto) Baso # (Auto) Sodium 136 L Potassium 3.6 Chloride 102 Carbon Dioxide 27 BUN 23 H Creatinine 1.16 Estimated GFR > 60.0 BUN/Creatinine Ratio 19.8 Glucose 231 H D Calcium 8.5 Magnesium 2.0 Total Bilirubin 0.7 AST 45 ALT 45 Alkaline Phosphatase 93 Total Protein 6.8 Albumin 3.3 L Globulin 3.5 Albumin/Globulin Ratio 0.9 L Lipase 276 Urine RBC Urine WBC Urine Bacteria Ur Culture Indicated? Micro UA Comment Discharge Plan Discharge Plan Patient Disposition: Home Discharge comment: You were admitted to the hospital with dehydration and a new diagnosis of diabetes. You were started on some new medications and a few of yours were also changed. Please follow up with your primary care provider within the next week as you may need changes to your blood pressure medications as well as adjustment in your insulin dosing or initiation of other medications. Discharge orders & Medications Prescriptions: New amlodipine [Norvasc] 2.5 mg Tablet 2.5 mg PO DAILY 30 Days Qty: 30 RF: 0 Lantus Solostar U-100 Insulin 100 unit/mL (3 mL) Insulin Pen 15 unit SUBCUT BID 30 Days Qty: 9 RF: 0 (DME) pen needle, diabetic [Pen Needle] 32 gauge x 5/32 needle See Rx Instructions .ROUTE .MEDSUPPLY Qty: 100 RF: 0 (DME) blood-glucose meter [Accu-Chek Imndy Plus Meter] [facility] See Rx Instructions .ROUTE .MEDSUPPLY Qty: 1 RF: 0 (DME) Accu-Chek Mindy Plus test strp Strip See Rx Instructions .ROUTE .MEDSUPPLY Qty: 200 RF: 0 metformin 750 mg tablet extended release 24 hr 750 mg PO DAILY 30 Days Qty: 30 RF: 0 Continued amoxicillin-pot clavulanate 875-125 mg tablet 1 tab PO BID Qty: 20 RF: 0 levothyroxine [Synthroid] 75 MCG tablet 100 mcg PO BEDTIME Qty: 0 RF: 0 esomeprazole magnesium [Nexium] 40 MG capsule,delayed release(DR/EC) 40 mg PO BEDTIME Qty: 0 RF: 0 Discontinued spironolactone 25 mg tablet 25 mg PO BEDTIME RF: 0 amlodipine [Norvasc] 5 MG tablet 5 mg PO BEDTIME Qty: 0 RF: 0 triamterene-hydrochlorothiazid 37.5 MG/25 MG tablet 1 tab PO BEDTIME Qty: 0 RF: 0 Follow up/Referrals: Arthur Beckman MD [Primary Care Provider] - Diet/Activity/Treatments Diet: Diet as Tolerated and Carb-consistent/Diabetic Activity: As tolerated Visit Report/Discharge Packet Instructions: How to Check Your Blood Glucose, Type 2 Diabetes, Carbohydrate-Counting Diet, DI for Hyperglycemia -- Adult, How to Use an Insulin Pen Visit Report Forms: Patient Portal/API, Stroke Signs & Symptoms Discharge Data Primary Care Provider: Arthur Beckman Attending Provider: Ni Ashley Admit Date/Time: 05/08/20 20:44 Discharges patient from system. Discharge Date/Time: 05/09/20 11:10 Quality VTE Deep Vein Thrombosis/Pulmonary Embolism Present on Admission: No
--- NOTE | 2020-05-10 10:13 | CM.DPC ---
DCP: continued: Spoke with Dr. Garcia during Team Rounds. He stated he had met with pt this morning and has ok'd him for d/c. He confirms diabetic teaching has been done and that pt will followup with his PCP.
--- NOTE | 2020-05-10 10:40 | PC.NURSE ---
Addendum entered by Ez Knight R.N. 05/10/20 11:17: Instructions given to Pt and By Kimmy VYAS Pt escorted to car. Original Note: Pt alert and oriented, verbal. Asking appropriate questions offers no overt c/o. Discussed D/C today with Dr. Garcia. See new orders. to be in to pick Pt up. IV d/c'd intact
== END 2020-05-10 11:10 | disposition home or self-care (01) ==
LOC: ED 18:54 → AC 20:46 → ICU 21:11 → AC 21:29
PROVIDERS: Emergency Medicine; Internal Medicine; Admitting Provider Nurse Practitioner Family; Emergency Provider Emergency Medicine; PCP Internal Medicine; Referring Provider Emergency Medicine; Visit Provider Nurse Practitioner Family
DX: E11.65 Type 2 diabetes mellitus with hyperglycemia (principal); I10 Essential (primary) hypertension; E03.9 Hypothyroidism, unspecified; J02.0 Streptococcal pharyngitis; Z79.4 Long term (current) use of insulin; Z11.59 Encounter for screening for other viral diseases
CPT/HCPCS: 36415; 80053; 80061; 81015; 82009; 82962; 83036; 83690; 83735; 84443; 85025; 87635; 96360; 96361; 96372; 99284; G0378; J1650; J7050

== ENCOUNTER → 2020-10-20 10:17 | Outpatient (CLI) | payer OTHER, SELFPAY ==
[2020-05-08 22:14] VITALS: BMI 36.3
[2020-10-20 11:23] LABS: Add Manual Diff / Slide Review NO; Basophils Absolute Auto 100 /uL (0-100); Basophils Percent Auto 1.1 % (0-2); Eosinophils Absolute Auto 500 /uL (0-450); Eosinophils Percent Auto 6.2 % (2-4); Hematocrit 49.2 % (41-53); Lymphocytes Absolute Auto 2300 /uL (1100-4500); Lymphocytes Percent Auto 27.1 % (25-40); Mean Corpuscular HGB Conc 34.5 % (30-36); Mean Corpuscular Hemoglobin 28.1 PG (26-34); Mean Corpuscular Volume 81.5 fL (80-100); Monocytes Absolute Auto 700 /uL (0-900); Monocytes Percent Auto 8.1 % (3-14); Neutrophils Absolute Auto 4900 /uL (1500-7000); Neutrophils Percent Auto 57.5 % (50-75); Platelet Count 258 X10^3/uL (150-400); Red Blood Cell Count 6.04 X10^6/uL (4.5-5.9); Red Cell Distribution Width 13.9 % (11.6-14.8); White Blood Cell Count 8.5 X10^3/uL (4.5-11.0)
[2020-10-20 11:39] LABS: Hemoglobin A1C% w Est Avg Glu 7.3 % (4.0-6.0)
[2020-10-20 12:22] LABS: Alanine Aminotransferase 36 IU/L (<50); Albumin 4.6 g/dL (3.5-5.0); Albumin Globulin Ratio 1.3 (1.0-2.8); Alkaline Phosphatase 77 U/L (38-126); Aspartate Aminotransferase 41 IU/L (17-59); BUN Creatinine Ratio 14.5 (6-22); Bilirubin Total 0.6 mg/dL (0.2-1.3); Blood Urea Nitrogen 19 mg/dL (9-20); Carbon Dioxide 31 mmol/L (22-32); Chloride 99 mmol/L (98-107); Cholesterol 170 mg/dL (140-199); Estimated Glomerular Filt Rate 56.8 mL/min (>60); Globulin 3.6 g/dL (1.7-4.1); Glucose 152 mg/dL (70-100); HDL Cholesterol 34 mg/dL (40-60); HEMOLYSIS < 15 (0-50); LDL Cholesterol Calculated 90 mg/dL (<100); Potassium 3.4 mmol/L (3.4-5.1); Sodium 138 mmol/L (137-145); Total Protein 8.2 g/dL (6.3-8.2); Triglycerides 229 mg/dL (35-150); Uric Acid 7.3 mg/dL (3.5-8.5)
[2020-10-20 12:24] LABS: Creatinine Urine Random 192.3 mg/dL
[2020-10-20 12:29] LABS: Microalbumi Creatinin Ratio Ur 8.3 ug/mg CR (<30); Microalbumin Urine Random 1.6 mg/dL (0-1.6)
[2020-10-20 12:52] LABS: Prostate Specific Antigen Scrn 0.523 ng/mL (0.1-4.0); Thyroid Stimulating Hormone 2.11 uIU/mL (0.47-4.68)
== END ==
PROVIDERS: PCP Family Medicine; Referring Provider Family Medicine; Visit Provider Family Medicine
DX: E03.9 Hypothyroidism, unspecified (principal); E13.69 Other specified diabetes mellitus with other specified complication; I10 Essential (primary) hypertension; Z12.5 Encounter for screening for malignant neoplasm of prostate; Z13.220 Encounter for screening for lipoid disorders; Z76.89 Persons encountering health services in other specified circumstances
CPT/HCPCS: 36415; 80053; 80061; 82043; 82570; 83036; 84439; 84443; 84550; 85025; G0103

== ENCOUNTER → 2020-11-09 13:54 | Outpatient (CLI) | payer OTHER, SELFPAY ==
[2020-05-08 22:14] VITALS: BMI 36.3
[2020-11-09 15:58] LABS: COVID19 -Nasal RAPID Negative (Negative)
== END ==
PROVIDERS: PCP Family Medicine; Visit Provider Physician Assistant
DX: Z20.822 Contact with and (suspected) exposure to COVID-19 (principal)
CPT/HCPCS: 87635

== ENCOUNTER → 2020-11-10 13:22 | Outpatient (CLI) | payer OTHER, SELFPAY ==
[2020-05-08 22:14] VITALS: BMI 36.3
--- NOTE | 2020-11-10 14:36 | PM.TREADMILL ---
Cardiac Stress Test Report Referral & Results Date Patient Seen: 11/10/20 Requesting provider: Keshawn Alcantar Indication: chest discomfort with exercise Rest ECG: interventricular conduction delay, probable incomplete right bundle branch block Procedure Note: Today following both written and verbal informed consent, the patient was exercised according to a standard [place] protocol. The patient exercised for a total of 5 minutes 32 seconds achieving a maximum heart rate of 152. Patient's maximum systolic blood pressure was 200. This was an estimated 7.0 MET's. there were no ST-T segment changes identified Function aerobic impairment rates 35% on the sedentary scale Normal heart rate and blood pressure response Patient did have very suspicious neck jaw and chest symptoms without ECG changes Impression: No evidence of ischemia but suspicious symptoms Depending on clinical concerned this study could be repeated with the addition of perfusion imaging to increased sensitivity and specificity, specially given the underlying interventricular conduction delay which may mask evidence of ischemia Please note: Actual ECG tracings can be found in the PACS system.
== END ==
PROVIDERS: PCP Family Medicine; Referring Provider Family Medicine; Visit Provider Family Medicine
DX: I20.9 Angina pectoris, unspecified (principal); T73.3XXA Exhaustion due to excessive exertion, initial encounter; R07.89 Other chest pain
CPT/HCPCS: 93016; 93017; 93018

== ENCOUNTER → 2020-11-12 15:01 | Outpatient (CLI) | payer OTHER, SELFPAY ==
[2020-05-08 22:14] VITALS: BMI 36.3
--- NOTE | 2020-11-12 16:15 | DIET.PN ---
Diabetes Intake: Initial Assessment Assess: Mr. Mohan is a 54 yom recently Dx with type 2 diabetes in May 2020. He reports going undiagnosed for some time with his previous provider. At diagnosis his bg was unreadable per pt. A1c was 12.6 upon hospital admission. He endorses drinking several sodas per day prior to diagnosis. Since then he has cut down to a couple a week. He admits to eating out most meals. 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 He reports continued GI complications due to metformin. Labs: Per pt report: 7.3 (12.6 05/2020) Meds: metf 1000mg qd; lantus 30 u pm Diet: per 24 hr recall: B: eggs, toast, milk or juice (16oz); frosted flakes L: pbj or chicken salad sandwich; behzad grier or subway D: [place]; happy wok; [employer] (dine out most nights) Wt: 297lb Ht: 74in BMI: 38.1 BP: 143/70 DX: Altered nutrition related laboratory values related to impaired glucose metabolism, lack of previous exposure to nutrition information as evidenced by pt report, diagnosis of diabetes, previous diet high in refined carbohydrates. Intervention: 1. Completed intake assessment. Discussed barriers to care. 2. Discussed pathophysiology of diabetes. Reviewed A1c and its correlation to blood glucose numbers. Discussed recommended BG ranges. 3. Discussed importance of self-monitoring, how often, and when to check. 4. Reviewed hyper/hypoglycemia and treatment. 5. Reviewed safe disposal of equipment (strip/lancets/insulin needles). 6. Created SMART goals for pt self-care and success. 7. Discussed program curriculum outline and class needs based on individual goals. SMART Goals: 1. Goal weight of 250lb over the next 6-12 mo through improved dietary habits, carb counting and portion control. Monitor/Evaluate: Pt will attend full DSME program. Basic Nutrition class scheduled for Nov 24.
== END ==
PROVIDERS: PCP Family Medicine; Referring Provider Family Medicine; Visit Provider Family Medicine
DX: E11.9 Type 2 diabetes mellitus without complications (principal); K92.9 Disease of digestive system, unspecified; E66.9 Obesity, unspecified; Z71.3 Dietary counseling and surveillance; Z79.84 Long term (current) use of oral hypoglycemic drugs; Z68.38 Body mass index [BMI] 38.0-38.9, adult
CPT/HCPCS: G0108

== ENCOUNTER → 2020-11-17 10:01 | Outpatient (CLI) | payer OTHER, SELFPAY ==
[2020-05-08 22:14] VITALS: BMI 36.3
--- NOTE | 2020-11-17 12:14 | DIET.PN ---
Diabetes Exercise/Lifestyle change: 1. Importance of exercise 2. FITT (frequency, intensity, time, type) 3. Strength training tips and guidelines 4. Glucose monitoring/ranges before and after a. Carbohydrate needs based on glucose ranges and duration/intensity of exercise b. Rule of 15 5. Proper foot attire 6. Developing strategies for behavior change 7. SMART Goal Setting 8. Home exercise routine demonstration (as a class)
== END ==
PROVIDERS: PCP Family Medicine; Referring Provider Family Medicine; Visit Provider Family Medicine
DX: E11.9 Type 2 diabetes mellitus without complications (principal); Z71.3 Dietary counseling and surveillance
CPT/HCPCS: G0109

== ENCOUNTER → 2020-11-24 10:00 | Outpatient (CLI) | payer OTHER, SELFPAY ==
[2020-05-08 22:14] VITALS: BMI 36.3
--- NOTE | 2020-11-24 11:19 | DIET.PN ---
Diabetes: Healthy Eating 1 Intervention: ? Discussed pathophysiology of diabetes and impact of nutrition/diet on blood sugar control.? Discussed fed versus non-fed state.?? ? Reviewed importance of Balance, Variety, and Moderation. ? Discussed the effect of carbohydrates/protein/fat on blood sugar control.? ? Stressed importance of consistent carbohydrate intake at each meal and provided instructions for recommended servings/portions of carbohydrates/protein per meal. Provided educational material. ? Reviewed carbohydrate counting and measuring carbohydrate content via serving sizes and reading nutrition labels.? Provided handouts.?? ? Discussed the difference between simple versus complex carbohydrates and the effect of fiber on blood sugar control.? Discussed various methods to increase fiber content in diet. ? Discussed the plate method for creating more carbohydrate conscious balanced meals. ? Stressed importance of meal timing and not going >4-5 hours between meals. Encouraged adding protein to evening snack to support glucose control overnight. ? Discussed importance of making dietary habits part of lifestyle change.
== END ==
PROVIDERS: PCP Family Medicine; Referring Provider Family Medicine; Visit Provider Family Medicine
DX: E11.9 Type 2 diabetes mellitus without complications (principal); Z71.3 Dietary counseling and surveillance
CPT/HCPCS: G0109

== ENCOUNTER → 2021-06-11 13:46 | Outpatient (CLI) | payer OTHER, SELFPAY ==
[2021-02-26 16:14] VITALS: BMI 36.3
[2021-06-11 14:38] LABS: Add Manual Diff / Slide Review NO; Basophils Absolute Auto 200 /uL (0-100); Basophils Percent Auto 1.4 % (0-2); Eosinophils Absolute Auto 300 /uL (0-450); Eosinophils Percent Auto 2.7 % (2-4); Hematocrit 44.7 % (41-53); Hemoglobin 15.4 g/dL (13.5-17.5); Lymphocytes Absolute Auto 3000 /uL (1100-4500); Lymphocytes Percent Auto 27.5 % (25-40); Mean Corpuscular HGB Conc 34.4 % (30-36); Mean Corpuscular Hemoglobin 26.9 PG (26-34); Mean Corpuscular Volume 77.9 fL (80-100); Monocytes Absolute Auto 1200 /uL (0-900); Neutrophils Absolute Auto 6200 /uL (1500-7000); Neutrophils Percent Auto 57.4 % (50-75); Platelet Count 277 X10^3/uL (150-400); Red Blood Cell Count 5.73 X10^6/uL (4.5-5.9); Red Cell Distribution Width 14.7 % (11.6-14.8); White Blood Cell Count 10.8 X10^3/uL (4.5-11.0)
[2021-06-11 14:45] LABS: Hemoglobin A1C% w Est Avg Glu 7.9 % (4.0-6.0)
[2021-06-11 16:30] LABS: Alanine Aminotransferase 36 IU/L (<50); Albumin 4.3 g/dL (3.5-5.0); Albumin Globulin Ratio 1.2 (1.0-2.8); Alkaline Phosphatase 110 U/L (38-126); Aspartate Aminotransferase 35 IU/L (17-59); BUN Creatinine Ratio 10.4 (6-22); Bilirubin Total 0.6 mg/dL (0.2-1.3); Blood Urea Nitrogen 21 mg/dL (9-20); Carbon Dioxide 25 mmol/L (22-32); Chloride 102 mmol/L (98-107); Estimated Glomerular Filt Rate 34.5 mL/min (>60); Globulin 3.6 g/dL (1.7-4.1); Glucose 207 mg/dL (70-100); HEMOLYSIS < 15 (0-50); Potassium 3.4 mmol/L (3.4-5.1); Sodium 141 mmol/L (137-145); Total Protein 7.9 g/dL (6.3-8.2); Uric Acid 5.1 mg/dL (3.5-8.5)
== END ==
PROVIDERS: PCP Family Medicine; Referring Provider Family Medicine; Visit Provider Family Medicine
DX: E11.9 Type 2 diabetes mellitus without complications (principal); E78.5 Hyperlipidemia, unspecified; I10 Essential (primary) hypertension; I25.10 Atherosclerotic heart disease of native coronary artery without angina pectoris; M10.9 Gout, unspecified
CPT/HCPCS: 36415; 80053; 83036; 84550; 85025

== ENCOUNTER → 2022-05-24 11:52 | Outpatient (CLI) | payer OTHER, SELFPAY ==
[2022-03-04 12:01] VITALS: BMI 36.3
[2022-05-24 12:43] LABS: Add Manual Diff / Slide Review NO; Basophils Absolute Auto 100 /uL (0-100); Basophils Percent Auto 1.4 % (0-2); Eosinophils Absolute Auto 300 /uL (0-450); Eosinophils Percent Auto 2.8 % (2-4); Hematocrit 49.2 % (41-53); Hemoglobin 16.6 g/dL (13.5-17.5); Lymphocytes Absolute Auto 2200 /uL (1100-4500); Lymphocytes Percent Auto 24.5 % (25-40); Mean Corpuscular HGB Conc 33.7 % (30-36); Mean Corpuscular Hemoglobin 27.6 PG (26-34); Mean Corpuscular Volume 81.7 fL (80-100); Monocytes Absolute Auto 700 /uL (0-900); Monocytes Percent Auto 7.7 % (3-14); Neutrophils Absolute Auto 5700 /uL (1500-7000); Neutrophils Percent Auto 63.6 % (50-75); Platelet Count 261 X10^3/uL (150-400); Red Blood Cell Count 6.02 X10^6/uL (4.5-5.9); Red Cell Distribution Width 14.7 % (11.6-14.8)
[2022-05-24 12:50] LABS: Hemoglobin A1C% w Est Avg Glu 8.8 % (4.0-6.0)
[2022-05-24 12:56] LABS: BUN Creatinine Ratio 9.9 (6-22); Blood Urea Nitrogen 14 mg/dL (9-20); Calcium 9.8 mg/dL (8.4-10.2); Carbon Dioxide 28 mmol/L (22-32); Chloride 101 mmol/L (98-107); Cholesterol 105 mg/dL (140-199); Estimated Glomerular Filt Rate 58 mL/min (>60); Glucose 218 mg/dL (70-100); HDL Cholesterol 34 mg/dL (40-60); HEMOLYSIS < 15 (0-50); LDL Cholesterol Calculated 38 mg/dL (<100); Potassium 3.8 mmol/L (3.4-5.1); Sodium 140 mmol/L (137-145); Triglycerides 167 mg/dL (35-150)
== END ==
PROVIDERS: PCP Family Medicine; Referring Provider Internal Medicine Cardiovascular Disease; Visit Provider Internal Medicine Cardiovascular Disease
DX: I10 Essential (primary) hypertension (principal); E11.65 Type 2 diabetes mellitus with hyperglycemia; Z79.4 Long term (current) use of insulin; I25.10 Atherosclerotic heart disease of native coronary artery without angina pectoris
CPT/HCPCS: 36415; 80048; 80061; 83036; 85025

== ENCOUNTER → 2022-11-03 08:50 | Outpatient (CLI) | payer OTHER, SELFPAY ==
[2022-03-04 12:01] VITALS: BMI 36.3
[2022-11-03 09:54] LABS: Add Manual Diff / Slide Review NO; Basophils Absolute Auto 100 /uL (0-100); Eosinophils Absolute Auto 500 /uL (0-450); Eosinophils Percent Auto 4.9 % (2-4); Hematocrit 50.4 % (41-53); Hemoglobin 17.2 g/dL (13.5-17.5); Lymphocytes Absolute Auto 2200 /uL (1100-4500); Lymphocytes Percent Auto 22.8 % (25-40); Mean Corpuscular HGB Conc 34.2 % (30-36); Mean Corpuscular Hemoglobin 27.9 PG (26-34); Mean Corpuscular Volume 81.7 fL (80-100); Monocytes Absolute Auto 800 /uL (0-900); Monocytes Percent Auto 8.3 % (3-14); Neutrophils Absolute Auto 6100 /uL (1500-7000); Platelet Count 238 X10^3/uL (150-400); Red Blood Cell Count 6.17 X10^6/uL (4.5-5.9); Red Cell Distribution Width 13.8 % (11.6-14.8); White Blood Cell Count 9.7 X10^3/uL (4.5-11.0)
[2022-11-03 10:04] LABS: Hemoglobin A1C% w Est Avg Glu 9.5 % (4.0-6.0)
[2022-11-03 10:15] LABS: HEMOLYSIS < 15 (0-50)
[2022-11-03 10:22] LABS: Alanine Aminotransferase 31 IU/L (<50); Albumin 4.3 g/dL (3.5-5.0); Albumin Globulin Ratio 1.2 (1.0-2.8); Alkaline Phosphatase 125 U/L (38-126); Aspartate Aminotransferase 32 IU/L (17-59); Bilirubin Total 0.9 mg/dL (0.2-1.3); Blood Urea Nitrogen 20 mg/dL (9-20); Calcium 9.2 mg/dL (8.4-10.2); Carbon Dioxide 30 mmol/L (22-32); Chloride 100 mmol/L (98-107); Cholesterol 111 mg/dL (140-199); Estimated Glomerular Filt Rate > 60 mL/min (>60); Globulin 3.7 g/dL (1.7-4.1); Glucose 228 mg/dL (70-100); HDL Cholesterol 29 mg/dL (40-60); LDL Cholesterol Calculated 36 mg/dL (<100); Potassium 3.5 mmol/L (3.4-5.1); Sodium 138 mmol/L (137-145); Triglycerides 231 mg/dL (35-150)
[2022-11-03 10:34] LABS: Free T4, Direct Thyroxine 0.86 ng/dL (0.78-2.19)
== END ==
PROVIDERS: PCP Family Medicine; Referring Provider Family Medicine; Visit Provider Family Medicine
DX: Z00.00 Encounter for general adult medical examination without abnormal findings (principal); E13.69 Other specified diabetes mellitus with other specified complication; E78.00 Pure hypercholesterolemia, unspecified; I10 Essential (primary) hypertension; E78.5 Hyperlipidemia, unspecified; M10.9 Gout, unspecified; N40.0 Benign prostatic hyperplasia without lower urinary tract symptoms
CPT/HCPCS: 36415; 80053; 80061; 83036; 84153; 84439; 84443; 85025

== ENCOUNTER 2023-02-10 12:56 | Day surgery (SDC) | payer OTHER, SELFPAY ==
[2022-03-04 12:01] VITALS: BMI 36.3
--- NOTE | 2023-02-10 | PATH_ITS ---
[facility] Accession Number: [id number] No. of containers..06 Tissue . 01 Material submitted: . PART A: sigmoid colon - SIGMOID POLYP PART B: cecum - SMALL CECAL POLYP X 3 PART C: colon - TRANSVERSE POLYP X 3 PART D: colon - TRANSVERSE X2 PART E: colon - DESCENDING POLYP X 3 PART F: colon - DESCENDING POLYP . 01 Diagnosis: A. Sigmoid Colon Polyp: Tubular adenoma. . B. Cecal Polyps: Tubular adenoma x1. Colonic mucosa with no diagnostic abnormality, consistent with polypoid redundancy x1. . C. Transverse Colon Polyps: Tubular adenoma x2. Colonic mucosa with focal mucosal hyperplasia x1. . D. Transverse Colon Polyps: Tubular adenomas (two polyps removed). . E. Descending Colon Polyps: Tubular adenomas (three polyps removed). . F. Descending Colon Polyp: Tubular adenoma. [facility] 02/16/2023 1524 Local . 01 Comment: Part B: Only two biopsy fragments are received for histologic evaluation. . 01 Electronically signed: . Ziggy Sol MD, PhD, Pathologist NPI- [id number] . 01 Gross description: . Part A: SIGMOID POLYP: Received in formalin is 1 fragment(s) of pinedo, soft tissue measuring 1.0 x 0.7 x 0.6 cm submitted entirely in 1 cassette(s) Part B: SMALL CECAL POLYP X 3: Received in formalin are 2 fragment(s) of pinedo, soft tissue measuring 0.2 x 0.2 x 0.2 cm to 0.3 x 0.2 x 0.2 cm submitted entirely in 1 cassette(s) Part C: TRANSVERSE POLYP X 3: Received in formalin are 3 fragment(s) of pinedo, soft tissue measuring 0.1 x 0.1 x 0.1 cm to 0.2 x 0.2 x 0.2 cm submitted entirely in 1 cassette(s) Part D: TRANSVERSE X2: Received in formalin are multiple fragment(s) of pinedo, soft tissue measuring 0.1 x 0.1 x 0.1 cm to 0.3 x 0.2 x 0.2 cm submitted entirely in 1 cassette(s) Part E: DESCENDING POLYP X 3: Received in formalin are 4 fragment(s) of pinedo, soft tissue measuring 0.3 x 0.3 x 0.3 cm to 0.8 x 0.6 x 0.4 cm submitted entirely in 1 cassette(s) Part F: DESCENDING POLYP : Received in formalin are 2 fragment(s) of pinedo, soft tissue measuring 0.6 x 0.6 x 0.6 cm to 1.4 x 0.6 x 0.6 cm submitted entirely in 1 cassette(s) /SHAWN 02/14/2023 2311 Local . 01 Pathologist provided ICD-10: D12.6 . 01 CPT . 161126, 048149, 053789, 292037, 160600, 662000 Specimen Comment: A courtesy copy of this report has been sent to [facility] Pathology Performed at: 01 [facility] Cyt[facility] [address] [place] [address], [place], [place] [id number] MD Shane Escobedo MD Phone: [phone]
[2023-02-10 13:29] VITALS: BP 158/87; PULSE 82; RESP 16; TEMP 36.8; O2SAT 96
[2023-02-10] MEDS: LACTATED RINGERS 1,000 ML 200 ML IV (13:36)
--- NOTE | 2023-02-10 15:10 | P.HP_ITS ---
History of Present Illness History of Present Illness Date Patient Seen: 02/10/23 Time Patient Seen: 15:10 Chief complaint: Screening Colonoscopy Narrative: Mr. Cuevas presents today for his 1st screening colonoscopy. He has no known family history of colon cancer however he was adopted so he does not know his family history at all. He has no concerning symptoms no bleeding changes in bowel habits or abdominal cramping and no further questions today. [facility] Medical History Adopted person Basal cell carcinoma Coronary artery disease Essential hypertension (~2006) Fatigue GERD (gastroesophageal reflux disease) (~1996) Gout (~2006) Hodgkin's disease (~1986) Hyperlipidemia Hypothyroidism (~2006) Melanoma (~1984) Pain, joint, knee (~2009) Well adult exam Surgical History Anesthesia History of vasectomy (~1992) S/P dissection of cervical lymph nodes (~1984) Skin cancer (melanoma) (~1984) Family History Other Family history unknown Social History household members: spouse Smoking Status: Never smoker alcohol intake: never substance use type: does not use eating out: 4 or more times/week Type(s) of exercise: irregular exercise Meds Home Medications and Allergies Home Medications Medication Instructions Recorded Confirmed Type blood-glucose meter (Accu-Chek #1 ea 05/10/20 11/03/22 Rx Mindy Plus Meter) pen needle, diabetic 32 gauge x #100 ea 05/10/20 11/03/22 Rx 5/32 (Pen Needle) hydrochlorothiazide 25 mg tablet 12.5 mg PO DAILY 03/09/21 02/10/23 History blood sugar diagnostic (Accu-Chek #200 ea 03/04/22 11/03/22 Rx Mindy Plus test strips) aspirin 81 mg chewable tablet 81 mg PO DAILY #90 tabs 06/07/22 02/10/23 Rx insulin lispro 100 unit/mL See Rx Instructions .Route 09/13/22 02/10/23 Rx subcutaneous pen .COMPLEX #15 mL allopurinol 300 mg tablet See Rx Instructions .Route 09/20/22 02/10/23 Rx .COMPLEX #90 tabs amlodipine 5 mg tablet 5 mg PO BID #180 tabs 11/03/22 02/10/23 Rx atorvastatin 40 mg tablet 40 mg PO BEDTIME #90 tabs 11/03/22 02/10/23 Rx levothyroxine 112 mcg tablet See Rx Instructions .Route 11/03/22 02/10/23 Rx .COMPLEX #90 tabs losartan 25 mg tablet 25 mg PO DAILY #90 tabs 11/03/22 02/10/23 Rx insulin glargine 100 unit/mL (3 See Rx Instructions .Route 11/17/22 02/10/23 Rx mL) subcutaneous pen (Basaglar .COMPLEX #15 mL KwikPen U-100 Insulin) esomeprazole magnesium 40 mg See Rx Instructions .Route 12/22/22 02/10/23 Rx capsule,delayed release .COMPLEX #90 caps carvedilol 12.5 mg tablet 12.5 mg PO BID 02/10/23 02/10/23 History empagliflozin 10 mg tablet 10 mg PO DAILY 02/10/23 02/10/23 History (Jardiance) spironolactone 25 mg tablet 25 mg PO DAILY 02/10/23 02/10/23 History Allergies Allergy/AdvReac Type Severity Reaction Status Date / Time No Known Drug Allergies Allergy Verified 02/10/23 13:14 Exam Vital Signs (past 8 hours): - 02/10/23 13:29 Temperature 98.3 F Pulse Rate 82 Respiratory Rate 16 Blood Pressure 158/87 H Pulse Oximetry 96 Oxygen Delivery Method Room Air Oxygen Delivery Method Room Air Const General: cooperative, healthy appearing and comfortable Nutritional Appearance: obese Orientation: alert, awake and oriented x3 HENMT Head: normal to inspection Eyes General: appearance normal, both eyes and all related structures Resp Effort & Inspection: normal respiratory effort and able to speak in complete sentences Cardio Pulses: radial pulses present GI Palpation: soft and No tender Assessment & Plan Assessment and plan (1) Screening for colon cancer: Status: Acute Assessment & Plan narrative: Presents today for screening colonoscopy I discussed the risks benefits and alternatives including but not limited to perforation of the colon and an incomplete exam he fully understands these risks and would like to proceed.
--- NOTE | 2023-02-10 16:18 | PM.OP.COLON ---
Operative Date/Time/Diagnoses Date of procedure: 02/10/23 Time of procedure: 16:18 Pre-op diagnosis: Screening colonoscopy Post-op diagnosis: same Procedure & Clinicians Study performed: Colonoscopy and biopsies Indications: 1st screening colonoscopy without known family history Surgeon: Anusha Weathers Procedure Notes Procedure in detail: Patient was taken to the endoscopy suite and placed in a left lateral decubitus position. A time-out was performed. With the help of anesthesiologist conscious sedation was induced and monitored throughout the case. A digital rectal exam was performed and there were no masses or strictures. The colonoscope was introduced into the anal canal and advanced when we entered the sigmoid colon there was a large sigmoid colon polyp that was greater than 2 cm in size. This was taken with a snare and removed in total. Two separate bites were taken to remove polyp and it was not able to be suctioned through the canister therefore was removed on the suction by withdrawing the scope. The scope was then reintroduced and advanced through to the cecum there were a large number of very large diverticula throughout the colon, primarily in the sigmoid but in the entire colon. Also there were several polyps seen upon entry. Finally the prep was poor it was a [place] bowel prep score of 1. A photograph of the appendiceal orifice was obtained. Several photographs of both the prep, diverticula and other polyps were taken during the course of the colonoscopy. The scope was then withdrawn for a about 40 minutes including all of the biopsies. To begin with in the cecum there were 3 small polyps that were taken with the Jumbo forceps. These were placed in a specimen jar together. Next in the transverse colon there were 3 additional polyps these were small as well. There were 2 larger transverse colon polyp still probably shy of 1 cm, that were sent together in a 4th specimen jar. Finally as we turned the corner into the descending colon we found 3 smaller polyps that were sent together in 1 specimen jar. There was a 2nd descending colon polyp which was very large large, probably 2.5 cm that was taken with several swipes of the snare. No additional polyps were seen thereafter. The scope was then retroflexed and a photograph of the internal hemorrhoidal piles was obtained. Findings: divertiulosis, polyp(s) (A total of 13 polyps were found; 2 of them were over 2 cm in size.) and other findings (Poor prep) Specimen(s): other (1. Sigmoid polyp 2. Cecal polyp small x3 3. Transverse colon polyps x3 4. Transverse colon polyp x2 5. Descending colon polyp x3 6. Descending colon polyp large) Complications: none Post-procedure Recommendations: Colonoscopy in 1 year Plan for aftercare: Given the number of polyps and the quality of the prep that was seen here I would recommend a 1 year follow-up. A 1-3 year follow-up might be acceptable but I would err on the side of caution given that the prep was also poor. Disposition: PACU
[2023-02-10 16:22] VITALS: BP 110/60; PULSE 72; RESP 14; TEMP 36.3; O2SAT 93
[2023-02-10 16:27] VITALS: BP 112/61; PULSE 71; RESP 14; O2SAT 94
[2023-02-10 16:32] VITALS: BP 114/65; PULSE 66; RESP 14; O2SAT 94
[2023-02-10 16:36] VITALS: BP 129/68; PULSE 80; RESP 14; O2SAT 93
[2023-02-10 16:42] VITALS: BP 153/80; PULSE 83; RESP 16; O2SAT 95
== END 2023-02-10 17:05 | disposition home or self-care (01) ==
PROVIDERS: PCP Family Medicine; Referring Provider Surgery; Visit Provider Surgery
PROC: 0DJD8ZZ Inspection of Lower Intestinal Tract, Via Natural or Artificial Opening Endoscopic (ICD-10-PCS; CPT 45378; principal; 2023-02-10 14:45)
DX: Z12.11 Encounter for screening for malignant neoplasm of colon (principal); K57.30 Diverticulosis of large intestine without perforation or abscess without bleeding; D12.5 Benign neoplasm of sigmoid colon; D12.0 Benign neoplasm of cecum; D12.3 Benign neoplasm of transverse colon; D12.4 Benign neoplasm of descending colon
CPT/HCPCS: 45385; 45380; J2704

== ENCOUNTER → 2023-04-06 14:05 | Outpatient (CLI) | payer OTHER, SELFPAY ==
[2022-03-04 12:01] VITALS: BMI 36.3
[2023-04-06 15:01] LABS: Influenza A - CEPHEID Flu A NEGATIVE (NEGATIVE); Influenza B - CEPHEID Flu B NEGATIVE (NEGATIVE); Respiratory Syncytial Virus Negative (Negative)
[2023-04-06 15:04] LABS: COVID-19 CEPHEID 4-PLEX PCR Negative (Negative)
== END ==
PROVIDERS: PCP Family Medicine; Visit Provider Physician Assistant
DX: J02.9 Acute pharyngitis, unspecified (principal); R05.1 Acute cough
CPT/HCPCS: 0241U; 87070

== ENCOUNTER → 2023-05-23 15:39 | Outpatient (CLI) | payer OTHER, SELFPAY ==
[2022-03-04 12:01] VITALS: BMI 36.3
[2023-05-23 16:32] LABS: Hemoglobin A1C% w Est Avg Glu 8.3 % (4.0-6.0)
[2023-05-23 16:38] LABS: BUN Creatinine Ratio 11.2 (6-22); Blood Urea Nitrogen 12 mg/dL (9-20); Calcium 9.9 mg/dL (8.4-10.2); Carbon Dioxide 28 mmol/L (22-32); Chloride 101 mmol/L (98-107); Estimated Glomerular Filt Rate > 60 mL/min (>60); Glucose 154 mg/dL (70-100); HEMOLYSIS 28 (0-50); Potassium 3.3 mmol/L (3.4-5.1); Sodium 139 mmol/L (137-145)
[2023-05-23 17:08] LABS: TSH w/ Reflex to FT4 1.79 uIU/mL (0.47-4.68)
== END ==
PROVIDERS: PCP Family Medicine; Referring Provider Family Medicine; Visit Provider Family Medicine
DX: E03.9 Hypothyroidism, unspecified (principal); E11.9 Type 2 diabetes mellitus without complications
CPT/HCPCS: 36415; 80048; 83036; 84443

== ENCOUNTER → 2023-11-22 15:44 | Outpatient (CLI) | payer OTHER, SELFPAY ==
[2022-03-04 12:01] VITALS: BMI 36.3
[2023-11-22 17:23] LABS: Hemoglobin A1C% w Est Avg Glu 8.3 % (4.0-6.0)
[2023-11-22 17:28] LABS: Add Manual Diff / Slide Review NO; Basophils Absolute Auto 100 /uL (0-100); Basophils Percent Auto 0.9 % (0-2); Eosinophils Absolute Auto 200 /uL (0-450); Eosinophils Percent Auto 2.5 % (2-4); Hematocrit 49.4 % (41-53); Hemoglobin 16.7 g/dL (13.5-17.5); Lymphocytes Absolute Auto 2700 /uL (1100-4500); Lymphocytes Percent Auto 26.8 % (25-40); Mean Corpuscular HGB Conc 33.9 % (30-36); Mean Corpuscular Volume 82.8 fL (80-100); Monocytes Absolute Auto 900 /uL (0-900); Monocytes Percent Auto 8.8 % (3-14); Neutrophils Absolute Auto 6100 /uL (1500-7000); Platelet Count 273 X10^3/uL (150-400); Red Blood Cell Count 5.97 X10^6/uL (4.5-5.9); Red Cell Distribution Width 13.8 % (11.6-14.8); White Blood Cell Count 10.1 X10^3/uL (4.5-11.0)
[2023-11-22 17:31] LABS: Alanine Aminotransferase 25 IU/L (<50); Albumin 4.2 g/dL (3.5-5.0); Albumin Globulin Ratio 1.1 (1.0-2.8); Alkaline Phosphatase 114 U/L (38-126); Aspartate Aminotransferase 26 IU/L (17-59); BUN Creatinine Ratio 15.5 (6-22); Bilirubin Total 0.7 mg/dL (0.2-1.3); Blood Urea Nitrogen 17 mg/dL (9-20); Calcium 9.4 mg/dL (8.4-10.2); Carbon Dioxide 35 mmol/L (22-32); Chloride 102 mmol/L (98-107); Estimated Glomerular Filt Rate > 60 mL/min (>60); Globulin 3.9 g/dL (1.7-4.1); Glucose 147 mg/dL (70-100); HEMOLYSIS < 15 (0-50); Potassium 3.2 mmol/L (3.4-5.1); Sodium 141 mmol/L (137-145); Total Protein 8.1 g/dL (6.3-8.2)
[2023-11-22 18:17] LABS: Vitamin B12 651 pg/mL (239-931)
== END ==
PROVIDERS: PCP Family Medicine; Referring Provider Family Medicine; Visit Provider Family Medicine
DX: E11.9 Type 2 diabetes mellitus without complications (principal); R53.82 Chronic fatigue, unspecified; E87.6 Hypokalemia
CPT/HCPCS: 36415; 80053; 82607; 83036; 85025

== ENCOUNTER → 2023-12-18 12:58 | Outpatient (CLI) | payer OTHER, SELFPAY ==
[2022-03-04 12:01] VITALS: BMI 36.3
--- NOTE | 2023-12-18 13:00 | DI.RAD.S_ITS ---
PROCEDURE: XR KNEE LT 3V INDICATIONS: pain TECHNIQUE: 3 views of the knee were acquired. COMPARISON: [facility], , KNEE 3V RIGHT, 09/09/2016, 9:52. FINDINGS: Bones: No fractures or dislocations. No suspicious bony lesions. Soft tissues: No joint effusion. No suspicious soft tissue calcifications. IMPRESSION: No acute bony abnormality or significant effusion. Dictated by: Pastora Dodd M.D. on 12/18/2023 at 14:21 Approved by: Pastora Dodd M.D. on 12/18/2023 at 14:22
--- NOTE | 2023-12-18 13:00 | DI.RAD.S_ITS ---
PROCEDURE: XR KNEE RT 3V INDICATIONS: pain TECHNIQUE: 3 views of the knee were acquired. COMPARISON: [facility], , KNEE 3V RIGHT, 09/09/2016, 9:52. FINDINGS: Bones: No fractures or dislocations. There are trace intercondylar osteophytes. There is a small patellar enthesophyte. No suspicious bony lesions. Soft tissues: No joint effusion. No suspicious soft tissue calcifications. IMPRESSION: No acute bony abnormality or significant effusion. Mild degenerative change. Dictated by: Pastora Dodd M.D. on 12/18/2023 at 14:22 Approved by: Pastora Dodd M.D. on 12/18/2023 at 14:22
== END ==
PROVIDERS: PCP Family Medicine; Referring Provider Family Medicine; Visit Provider Family Medicine
DX: M25.561 Pain in right knee (principal); M25.562 Pain in left knee; G89.29 Other chronic pain
CPT/HCPCS: 73562

== ENCOUNTER → 2024-01-11 14:52 | Outpatient (CLI) | payer OTHER, SELFPAY ==
[2022-03-04 12:01] VITALS: BMI 36.3
--- NOTE | 2024-01-31 15:20 | DIAB.INIT ---
Initial Diabetes Education Assessment Name: Alondra Mohan (Tad) Date: 01/11/24 Time: 305-4p Dx: Type II Diabetes Moreno presents for Dm visit. Reports he has not started Trulicity. States he worries about SE. Ozempic hx and made him sick with nausea x 2-3 weeks. has a trip in January, so willing to try Trulicity prior. Diet recall indicates sugar cereal for breakfast, sugar beverages with meals, and frequent eating out 4-5x per week. Wants easy meal prep ideas next visit. Physical Activity: knee pain barrier. Recent non steroid injection for pain per report, which has been helpful. General mónica job increases movement. Does some yardwork. Self-Monitoring Blood Glucose: CGM use. Feels lows at 120mg/dl or less. hypo symptoms: weakness, fatigue, shaky. Likely r/t chronic hyperglycemia. Runs out of CGMs, only gets 2 per month. TIR: 24% very high 58% high 18% in range 0% low Avmg/dl 58mg/dl std dev 25.5% variability Diabetes Medications: 25mg Glipizide 25mg Jardiance 0.75 Trulicity (not yet) 45u BID Glargine 14u TID Lispro Pertinent Labs: hgA1c: 9.5% 10/2022 8.3% 05/2023 8.3% 11/2023 Past Medical History: (Last Reviewed 01/09/24 @ 13:55 by Rl Ponce MD) Adopted person Basal cell carcinoma Ongoing Bilateral knee pain Bilateral primary osteoarthritis of knee Coronary artery disease Essential hypertension (~2006) Fatigue GERD (gastroesophageal reflux disease) (~1996) Gout (~2006) Hodgkin's disease (~1986) Hyperlipidemia Hypothyroidism (~2006) Melanoma (~1984) Obesity (BMI 35.0-39.9 without comorbidity) Pain, joint, knee (~2009) Well adult exam Intervention: This participant was very receptive. Provided appropriate educational handouts. Discussed the following topics: Completed intake assessment. Discussed barriers to care. Pathophysiology of type 2 diabetes Troubleshooting CGM rx issues General recommended servings for carbohydrates at meals and snacks Sugar beverages impact on BG Sugar substitutes pros/cons Role of physical activity and following provider guidelines for safety Pairing CHO and protein Medication management Created SMART goals for patient self-care and success. Goals: Start Trulicity Pair CHO and protein Avoid sugar beverages Follow-up: ZAFAR GUZMÁN follow-up in 3-4 weeks Analia Lewis RDN, RAMIREZ Certified Diabetes Care and Life Agent P: [phone] Thank you for this referral
== END ==
LOC: DIET 14:53
PROVIDERS: PCP Family Medicine; Referring Provider Family Medicine
DX: E11.9 Type 2 diabetes mellitus without complications (principal); Z71.3 Dietary counseling and surveillance; Z68.36 Body mass index [BMI] 36.0-36.9, adult
CPT/HCPCS: 97802

== ENCOUNTER → 2024-02-06 08:04 | Outpatient (CLI) | payer OTHER, SELFPAY ==
[2022-03-04 12:01] VITALS: BMI 36.3
--- NOTE | 2024-02-15 15:16 | DIAB.MNT ---
Initial Diabetes Medical Nutrition Therapy Assessment Name: Alondra Mohan (Moreno) Date: 02/06/24 Time: 810-850a Dx: Type II Diabetes Moreno presents for follow-up. States he has made diet changes. reduced CHO intake and eliminated sugar beverages. Overall trying to eat better per report. Diet recall limited in veggies, though there are a number that he enjoys. Granddaughter stays with them and is gluten intolerant, which impacts food options. Started Trulicity x last 3 weeks per report Diet Recall: 7-8a: frosted flakes and milk sn: banana 1-2p: sandwiches or leftovers 6-8p: sloppy joes with half bun or chicken pasta or rice or one enchilada +/- rice and beans sn; peanuts or popcorn or apple or grames Beverages: water Endorses reduced appetite over last 2-3 weeks with GLP1 therapy. Has reduced eating out when not traveling for work. Anthropometrics: Ht: 6'2 Wt: 294# Physical Activity: Walking more during recent trip. Working with pain clinic on knee. PT for knees starts next month. Self-Monitoring Blood Glucose: Much improved time in range. much less hyperglycemia with 66% in range and goal of 70% or more in range. Today: TIR: 5% very high 29% high 66% in range 0% low Avmg/dl 40mg/dl std dev Last Visit: TIR: 24% very high 58% high 18% in range 0% low Avmg/dl 58mg/dl std dev 25.5% variability Diabetes Medications: 25mg Glipizide 25mg Jardiance 0.75 Trulicity 45u BID Glargine 14u TID Lispro Pertinent Labs: hgA1c: 9.5% 10/2022 8.3% 05/2023 8.3% 11/2023 Past Medical History: (Last Reviewed 01/09/24 @ 13:55 by Rl Ponce MD) Adopted person Basal cell carcinoma Ongoing Bilateral knee pain Bilateral primary osteoarthritis of knee Coronary artery disease Essential hypertension (~2006) Fatigue GERD (gastroesophageal reflux disease) (~1996) Gout (~2006) Hodgkin's disease (~1986) Hyperlipidemia Hypothyroidism (~2006) Melanoma (~1984) Obesity (BMI 35.0-39.9 without comorbidity) Pain, joint, knee (~2009) Well adult exam Nutrition Rx: Carbohydrates: Meal:45-60g Snack:15-30g Nutrition Diagnosis: - Inadequate fiber intake r/t nutrition knowledge deficit aeb diet recall of limited whole grains and veggies - Predicted excessive CHO intake r/t undesirable cereal choices aeb diet recall Intervention: This participant was very receptive. Provided appropriate educational handouts. Discussed the following topics: Completed intake assessment. Discussed barriers to care. Plate Method, impact of macronutrients on blood sugar, meal timing, carbohydrate counting, pairing macronutrients and spreading out carbohydrates for better blood glucose management Recommended servings for carbohydrates at meals and snacks Heart health nutrition Brainstormed appropriate meal/snack ideas based on food preferences Role of physical activity and following provider guidelines for safety Created SMART goals for patient self-care and success. Goals: Switch to cheerios Add veggies to dinner Try garbanzo mack pasta Follow-up: ZAFAR GUZMÁN follow-up in 3-4 weeks Analia Lewis RDN, RAMIREZ Certified Diabetes Care and Pocketed Spring Assembler P: [phone] Thank you for this referral
== END ==
PROVIDERS: PCP Family Medicine; Referring Provider Family Medicine
DX: E11.9 Type 2 diabetes mellitus without complications (principal); Z79.84 Long term (current) use of oral hypoglycemic drugs; Z79.4 Long term (current) use of insulin; Z79.85 Long-term (current) use of injectable non-insulin antidiabetic drugs; Z71.3 Dietary counseling and surveillance
CPT/HCPCS: 97802

== ENCOUNTER → 2024-04-17 09:56 | Outpatient (CLI) | payer OTHER, SELFPAY ==
[2022-03-04 12:01] VITALS: BMI 36.3
--- NOTE | 2024-04-17 10:07 | DIAB.MNTFU ---
Follow-up Diabetes Medical Nutrition Therapy Assessment Name: Alondra Mohan (Moreno) Date: 04/17/24 Time: 9943f Dx: Type II Diabetes Moreno presents for follow-up visit. Missed two Trulicity doses due to being out of town and forgot to take with him. Did have some nausea originally with higher does, none since restarting. Eating out more recently due to being out of town. Did go to the grocery store and purchased some food, ie salads. Lunches were difficult due to eating out with others, but would eat half and take some to go. Endorses more water during trip. Has been trying to cut down on sugar soda. When drinking soda, 12-24oz per day. May go a few days without, actually may be contributing to recent headache. Trying to cut down on bread recently. States he has been inconsistent with taking DM medications, namely GLP1 and meal time insulin. Has not completed labs since November. Multiple skin tags on left eye. States this is not new. May be exacerbated by hyperglycemia, supported also by his nurse informaticist per report. Sees dermatology regularly with h/o multiple skin cancers. Reports at time of diagnosis of DM BG was in the 800s. States previous PCP in [place] missed multiple lab results of 300-400 BG. Diet Recall: 7-8a: cheerios or eggs with ww toast sn: banana 1-2p: nothing or crispy chx sandwich with half the bun 6p: sloppy joes half bun or chicken thighs baked, potatoes 1c sn: banana or peanuts 48oz water, soda: 0-24oz/day (usually at lunch) adding some lemonade to water for taste Anthropometrics: Ht: 6'2 Wt: 304# Physical Activity: Walking about 1 mi per night with . Does laps at the local elementary. Walking 3 x per week. Self-Monitoring Blood Glucose: Missing data from CGM due to missing sensors when out of town. Endorses lows of 50-70mg/dl at times, but not consistent with recent CGM reports. May have been during time without sensor. Over the last 90 days 0% lows and <1% very low. States this would happen during the day, ruling out compression false lows. States lows would happen with taking meal time insulin with GLP1. Currently having freq hyperglycemia with GLP1 on board and no meal time insulin. May consider cutting meal time insulin in half if causing lows or even holding eventually. 14 day TIR below compared to previous visit indicates increased hyperglycemia. Today: TIR: 19% very high 41% high 40% in range 0% low 0% very low Avmg/dl 40mg/dl std dev Last Visit: 5% very high 29% high 66% in range 0% low Avmg/dl 40mg/dl std dev Diabetes Medications: 25mg Glipizide 25mg Jardiance 1.5 Trulicity 45u BID Glargine 0-12u TID Lispro-- didn't take while on Trulicity before trip Pertinent Labs: hgA1c: 9.5% 10/2022 8.3% 05/2023 8.3% 11/2023 Past Medical History: (Last Reviewed 03/04/24 @ 13:46 by Rl Ponce MD) Adopted person Basal cell carcinoma Ongoing Bilateral knee pain Bilateral primary osteoarthritis of knee Coronary artery disease Essential hypertension (~2006) Fatigue GERD (gastroesophageal reflux disease) (~1996) Gout (~2006) Hodgkin's disease (~1986) Hyperlipidemia Hypothyroidism (~2006) Melanoma (~1984) Obesity (BMI 35.0-39.9 without comorbidity) Pain, joint, knee (~2009) Well adult exam Nutrition Rx: Carbohydrates: Meal:45-60g Snack:15-30g Nutrition Diagnosis: -Excessive CHO intake r/t undesirable beverage choices aeb diet recall- new Intervention: This participant was very receptive. Provided appropriate educational handouts. Discussed the following topics: BG trends and reports Getting baseline now that he is back from trip, and then getting a plan for when leaving town (check list for Dm supplies?) Sugar beverages impact on BG Physical activity plan and progress Lab results due and previous results Medication management Created SMART goals for patient self-care and success. Goals: Switch to cheerios- met Add veggies to dinner- not met Try garbanzo mack pasta - not discussed Take Dm meds consistently- new Get new labs- new Wear sensor consistently- new Avoid soda- new Follow-up: ZAFAR GUZMÁN follow-up in 2-3 weeks Analia Lewis RDN, RAMIREZ Certified Diabetes Care and Barge Master P: [phone] Thank you for this referral
== END ==
PROVIDERS: PCP Family Medicine; Referring Provider Family Medicine
DX: E11.9 Type 2 diabetes mellitus without complications (principal); Z79.84 Long term (current) use of oral hypoglycemic drugs; Z79.85 Long-term (current) use of injectable non-insulin antidiabetic drugs; Z71.3 Dietary counseling and surveillance
CPT/HCPCS: 97803

== ENCOUNTER → 2024-05-08 09:01 | Outpatient (CLI) | payer OTHER, SELFPAY ==
[2022-03-04 12:01] VITALS: BMI 36.3
--- NOTE | 2024-05-08 10:14 | DIAB.MNTFU ---
Follow-up Diabetes Medical Nutrition Therapy Assessment Name: Alondra Mohan (Moreno) Date: 05/08/24 Time: 270-992a Dx: Type II Diabetes Provider: Nicole Mayer presents for follow-up visit. Much improved BG. States he is making a lot of changes right now. Endorses reduced appetite with increased GLP1 dose. More consistent breakfast. Switched to more water. May have one soda with a meal when eating out, ie 3 days per week. Does like lemonade and iced tea. Feels he should eat more veggies. is making more salads for lunch or dinner. States he likes smoothies and would be open to making these, could add veggies. Granddaughter gluten intolerant. He has been weighing himself with her. She needs to be weighed to be sure she is gaining weight. Just completed eye exam, no concerns. Anthropometrics: Ht: 6'2 Wt: 290s reported Physical Activity: More yard work lately, less walking. Trying to be active. Self-Monitoring Blood Glucose: Only a few days of data, but TIR much improved from last visit. Not taking meal time insulin and recent lowered basal insulin due to some lows. Today: TIR: 0% very high 10% high 91% in range 0% low 0% very low Avmg/dl GMI: 6.6% 31mg/dl std dev 21.9% variation Last Visit: 19% very high 41% high 40% in range 0% low 0% very low Avmg/dl 40mg/dl std dev Diabetes Medications: 2.5mg Glipizide 25mg Jardiance 1.5 Trulicity 42u BID Glargine 0u TID Lispro Pertinent Labs: hgA1c: 9.5% 10/2022 8.3% 05/2023 8.3% 11/2023 Past Medical History: (Last Reviewed 03/04/24 @ 13:46 by Rl Ponce MD) Adopted person Basal cell carcinoma Ongoing Bilateral knee pain Bilateral primary osteoarthritis of knee Coronary artery disease Essential hypertension (~2006) Fatigue GERD (gastroesophageal reflux disease) (~1996) Gout (~2006) Hodgkin's disease (~1986) Hyperlipidemia Hypothyroidism (~2006) Melanoma (~1984) Obesity (BMI 35.0-39.9 without comorbidity) Pain, joint, knee (~2009) Well adult exam Nutrition Rx: Carbohydrates: Meal:45-60g Snack:15-30g Nutrition Diagnosis: -Excessive CHO intake r/t undesirable beverage choices aeb diet recall- in progress - Predicted inadequate fiber intake r/t limited veggie acceptance aeb pt report - new Intervention: This participant was very receptive. Provided appropriate educational handouts. Discussed the following topics: BG trends and reports Sugar beverages impact on BG and substitute beverages Physical activity plan and progress Medication management: potential for increase in GLP1 and reduced basal insulin Strategies for increased veggies Smoothie ideas Created SMART goals for patient self-care and success. Goals: Take Dm meds consistently- met Get new labs- in progress Wear sensor consistently- met Avoid soda- in progress Try iced tea/lemonade instead of soda when eating out- new Try a smoothie with veggies in the morning Follow-up: ZAFAR GUZMÁN follow-up in 6 weeks after next trip and PCP visit Analia Lewis RDN, RAMIREZ Certified Diabetes Care and Drive In Theater Attendant P: [phone] Thank you for this referral
== END ==
PROVIDERS: PCP Family Medicine; Referring Provider Family Medicine
DX: E11.9 Type 2 diabetes mellitus without complications (principal); Z71.3 Dietary counseling and surveillance; Z79.84 Long term (current) use of oral hypoglycemic drugs; Z79.85 Long-term (current) use of injectable non-insulin antidiabetic drugs; Z79.4 Long term (current) use of insulin
CPT/HCPCS: 97803

== ENCOUNTER → 2024-05-30 19:43 | Outpatient (ROUT) | payer OTHER, SELFPAY ==
[2022-03-04 12:01] VITALS: BMI 36.3
== END ==
PROVIDERS: PCP Family Medicine; Visit Provider Dermatology
DX: T81.31XA Disruption of external operation (surgical) wound, not elsewhere classified, initial encounter (principal)
CPT/HCPCS: 87070; 87075; 87205

== ENCOUNTER → 2024-07-09 10:49 | Outpatient (CLI) | payer OTHER, SELFPAY ==
[2022-03-04 12:01] VITALS: BMI 36.3
[2024-07-09 12:17] LABS: Hemoglobin A1C% w Est Avg Glu 6.4 % (4.0-6.0)
[2024-07-09 12:20] LABS: Cholesterol 110 mg/dL (140-199); HDL Cholesterol 29 mg/dL (40-60); LDL Cholesterol Calculated 57 mg/dL (<100); Triglycerides 120 mg/dL (35-150)
[2024-07-09 12:51] LABS: TSH w/ Reflex to FT4 3.51 uIU/mL (0.47-4.68)
[2024-07-09 13:22] LABS: HIV 1 & 2 Ab/Ag 4th Gen Combo NEGATIVE (NEGATIVE); Hep C Virus Ab w/Reflex Quant NEGATIVE s/c (NEGATIVE)
== END ==
PROVIDERS: PCP Family Medicine; Referring Provider Family Medicine; Visit Provider Family Medicine
DX: Z12.5 Encounter for screening for malignant neoplasm of prostate (principal); E11.9 Type 2 diabetes mellitus without complications; E87.6 Hypokalemia; E78.5 Hyperlipidemia, unspecified; I10 Essential (primary) hypertension; Z11.59 Encounter for screening for other viral diseases; Z11.4 Encounter for screening for human immunodeficiency virus [HIV]; E03.9 Hypothyroidism, unspecified; R07.89 Other chest pain; R05.2 Subacute cough; E04.1 Nontoxic single thyroid nodule; R91.1 Solitary pulmonary nodule; I25.118 Atherosclerotic heart disease of native coronary artery with other forms of angina pectoris; E11.42 Type 2 diabetes mellitus with diabetic polyneuropathy; Z79.4 Long term (current) use of insulin
CPT/HCPCS: 36415; 80061; 83036; 84443; 86803; 87389; G0103

== ENCOUNTER → 2024-07-22 15:22 | Outpatient (CLI) | payer OTHER, SELFPAY ==
[2022-03-04 12:01] VITALS: BMI 36.3
--- NOTE | 2024-07-22 15:24 | DI.US.S_ITS ---
PROCEDURE: US THYROID INDICATIONS: thyroid nodule TECHNIQUE: Real-time scanning was performed of the thyroid gland, with image documentation. COMPARISON: None. FINDINGS: Thyroid: Right lobe measures 6.4 x 4.4 x 3.3 cm. Left lobe measures 3.1 x 2.0 x 1.7 cm. Isthmus is 0.4 cm thick. Echotexture is heterogenous. Multiple nodules are present. The largest are noted below: Nodule number: 1 Location: Right midpole Size: 2.9 x 3.5 x 3.1 cm. Composition: Solid Echogenicity: Isoechoic Shape: wider than tall. Margins: Smooth Echogenic foci: None Total points: 3 ACR TI-RADS category: TR 3 Nodule number: 2 Location: Right inferior pole Size: 1.4 x 1.7 x 1.5 cm. Composition: Solid Echogenicity: Hyperechoic Shape: wider than tall. Margins: Smooth Echogenic foci: None Total points: 2 ACR TI-RADS category: TR 2 Nodule number: 3 Location: Left superior pole Size: 1.5 x 1.5 x 1.5 cm. Composition: Solid Echogenicity: Isoechoic Shape: wider than tall. Margins: Smooth Echogenic foci: None Total points: 3 ACR TI-RADS category: TR 3 IMPRESSION: 1. Multinodular goiter. 2. FNA biopsy of right midpole 3.5 cm nodule recommended. 3. Follow-up of left superior pole 1.5 cm nodule in 1, 3, and 5 years from the time of this examination. ACR TI-RADS definitions and recommendations: TI-RADS 1 (benign): 0 points. FNA not needed. TI-RADS 2 (not suspicious): 2 points. FNA not needed. TI-RADS 3: 3 points. * FNA if 2.5 cm or larger, follow up if 1.5 cm or larger (at 1, 3, and 5 years). TI-RADS 4: 4-6 points. * FNA if 1.5 cm or larger, follow up if 1 cm or larger (at 1, 2, 3, and 5 years). TI-RADS 5: 7 points or more. * FNA if 1 cm or larger, follow up if 0.5 cm or larger (every year for 5 years). Dictated by: Castillo Grubbs M.D. on 07/22/2024 at 16:32 Approved by: Castillo Grubbs M.D. on 07/22/2024 at 16:38
== END ==
LOC: US 15:24
PROVIDERS: PCP Family Medicine; Referring Provider Family Medicine; Visit Provider Family Medicine
DX: E04.2 Nontoxic multinodular goiter (principal)
CPT/HCPCS: 76536

== ENCOUNTER → 2025-03-12 08:12 | Outpatient (CLI) | payer OTHER, SELFPAY ==
[2022-03-04 12:01] VITALS: BMI 36.3
[2025-03-12 09:31] LABS: Hematocrit 48.1 % (41-53); Hemoglobin 16.4 g/dL (13.5-17.5); Mean Corpuscular HGB Conc 34.1 % (30-36); Mean Corpuscular Hemoglobin 27.5 PG (26-34); Mean Corpuscular Volume 80.5 fL (80-100); Platelet Count 251 X10^3/uL (150-400)
[2025-03-12 09:38] LABS: Hemoglobin A1C% w Est Avg Glu 6.2 % (4.0-6.0)
[2025-03-12 09:51] LABS: Blood Urea Nitrogen 13 mg/dL (9-20); Calcium 9.4 mg/dL (8.4-10.2); Carbon Dioxide 26 mmol/L (22-32); Chloride 105 mmol/L (98-107); Cholesterol 142 mg/dL (140-199); Estimated Glomerular Filt Rate > 60 mL/min (>60); Glucose 140 mg/dL (70-99); HDL Cholesterol 32 mg/dL (40-60); HEMOLYSIS < 15 (0-50); Potassium 3.3 mmol/L (3.4-5.1); Sodium 141 mmol/L (137-145); Triglycerides 211 mg/dL (35-150)
== END ==
PROVIDERS: PCP Family Medicine; Referring Provider Internal Medicine Cardiovascular Disease; Visit Provider Internal Medicine Cardiovascular Disease
DX: E11.9 Type 2 diabetes mellitus without complications (principal); E78.5 Hyperlipidemia, unspecified; I25.10 Atherosclerotic heart disease of native coronary artery without angina pectoris; Z79.4 Long term (current) use of insulin
CPT/HCPCS: 36415; 80048; 80061; 83036; 85027

== ENCOUNTER → 2025-03-19 09:31 | Outpatient (CLI) | payer OTHER, SELFPAY ==
[2022-03-04 12:01] VITALS: BMI 36.3
[2025-03-19 10:27] LABS: Blood Urea Nitrogen 13 mg/dL (9-20); Calcium 9.3 mg/dL (8.4-10.2); Carbon Dioxide 25 mmol/L (22-32); Chloride 105 mmol/L (98-107); Estimated Glomerular Filt Rate > 60 mL/min (>60); Glucose 143 mg/dL (70-99); HEMOLYSIS < 15 (0-50); Potassium 3.4 mmol/L (3.4-5.1); Sodium 140 mmol/L (137-145)
== END ==
PROVIDERS: PCP Family Medicine; Referring Provider Internal Medicine Cardiovascular Disease; Visit Provider Internal Medicine Cardiovascular Disease
DX: I10 Essential (primary) hypertension (principal); Z95.1 Presence of aortocoronary bypass graft; E11.9 Type 2 diabetes mellitus without complications; Z79.4 Long term (current) use of insulin; E78.5 Hyperlipidemia, unspecified
CPT/HCPCS: 36415; 80048